=== PATIENT | female | born 1950 | race Hispanic/Latino ===

== ENCOUNTER 2017-08-05 12:57 | Observation (INO) | payer OTHER, MEDICARE ==
--- NOTE | 2017-08-05 14:25 | RAD REPORT ---
EXAM DESCRIPTION: RAD - Chest Pa And Lat (2 Views) - 08/05/2017 2:19 pm CLINICAL HISTORY: Palpitation. COMPARISON: 01/20/2013, 06/02/2009 FINDINGS: The lungs are clear. The heart is upper limit of normal in size. No displaced fractures. A ortic atherosclerosis IMPRESSION: No acute intrathoracic finding seen.
[2017-08-05 14:27] LABS: Absolute Monocytes 0.4 K/uL (0.1-1.3); Absolute Neutrophil 3.8 K/uL (1.8-8.0); Basophils % 0.6 % (0-1.3); Eosinophils % 2.5 % (0-4.4); Hematocrit 41.3 % (36.0-45.0); Lymphocytes % 31.2 % (15.3-44.8); MCH 30.7 pg (27.0-35.0); MCV 91.4 fL (80-100); MPV 7.4 fL (7.6-11.3); Monocytes % 6.1 % (3.3-12.3); RBC Red Blood Cell Count 4.52 M/uL (3.86-4.86)
[2017-08-05 14:36] LABS: Protime INR 1.04
[2017-08-05 14:41] LABS: Bicarbonate 28 mEq/L (21-31); Glucose Level 104 mg/dL (65-120); Lipase 13 U/L (22-51); Potassium 3.5 mEq/L (3.6-5.0); Sodium Level 141 mEq/L (135-145)
[2017-08-05 14:47] LABS: ALT/SGPT 72 IU/L (10-60); AST/SGOT 80 IU/L (10-42); Albumin 4.4 g/dL (3.2-5.5); Alkaline Phosphatase 136 IU/L (42-121); BUN Blood Urea Nitrogen 12 mg/dL (6-20); Bilirubin Direct 0.1 mg/dL (0-0.2); Bilirubin Total 0.9 mg/dL (0.3-1.2); Creatine Phosphokinase 98 IU/L (22-269); Protein, Total 7.8 g/dL (6.0-8.3)
[2017-08-05 14:50] LABS: CKMB Creatine Kinase MB 1.9 ng/ml (0.3-4.0)
--- NOTE | 2017-08-05 15:31 | RAD REPORT ---
EXAM DESCRIPTION: CT - Angio Aorta For Dissection - 08/05/2017 3:11 pm CLINICAL HISTORY: Chest pain radiating to the back. COMPARISON: None. TECHNIQUE: CT angiography of the aorta was performed with volume rendering. All CT scans are performed using dose optimization technique as appropriate and may include automated exposure control or mA/KV adjustment according to patient size. FINDINGS: A left aortic arch is present with normal branching pattern of the great vessels.No acute aortic finding is seen such as aneurysm, penetrating ulcer or dissection. Evidence of chronic occlus ion of the origin of the celiac axis is noted. The SMA is widely patent with significant pancreaticod uodenal collateral vessels noted supplying the celiac axis branch vessels. SONIA is patent. Bilateral s dileep renal arteries are noted without significant stenosis suspected. Aortoiliac atherosclerosis is present without significant stenosis. No evidence of pulmonary embolism. The lungs are clear. The liver demonstrates no focal mass or biliary dilatation.Mild fatty liver is suspected.The spleen, pancreas, adrenal glands and kidneys are within normal limits for arterial phase imaging.Mild mesente jessenia edema is present, nonspecific. A small fat containing umbilical hernia. No bowel obstruction, free fluid or abscess.No pneumatosis coli seen. The appendix is normal. No path ologic enlarged lymphadenopathy identified. No acute fracture seen. IMPRESSION: No acute aortic finding is demonstrated. 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 Prominent pancreaticoduodenal collaterals are present s upplying the celiac axis branches. Mild nonspecific small bowel mesenteric edema is present.
--- NOTE | 2017-08-05 15:51 | ER ---
Nurse's Notes [facility] Name: Veronica Claire Age: 67 yrs Sex: Female : 1950 Arrival Date: 08/05/2017 Time: 13:02 Bed 4 Private MD: Diagnosis: Other chest pain;Shortness of breath;Palpitations Presentation: 08/05 13:07 Presenting complaint: Patient states: Reports epigastric pain and tenderness with aj palpation for 2 days. Also reports rapid heart rate and SOB when walking up stairs. Transition of care: patient was not received from another setting of care. Onset of symptoms was August 03, 2017. Initial Sepsis Screen: Does the patient meet any 2 criteria? No. Patient's initial sepsis screen is negative. Does the patient have a suspected source of infection? No. Patient's initial sepsis screen is negative. Care prior to arrival: None. 13:07 Method Of Arrival: Ambulatory aj 13:07 Acuity: LUBA 3 aj Triage Assessment: 13:08 General: Appears in no apparent distress. comfortable, Behavior is calm, cooperative, aj appropriate for age. Pain: Complains of pain in epigastric area. Neuro: Level of Consciousness is awake, alert, obeys commands, Oriented to person, place, time, situation, Appropriate for age. Cardiovascular: Denies chest pain, Capillary refill < 3 seconds in bilateral fingers Patient's skin is warm and dry. GI: Abdomen is flat. Derm: Skin is intact, is healthy with good turgor, Skin is pink, warm \T\ dry. normal. 13:08 Respiratory: Reports shortness of breath on exertion. aj Historical: - Allergies: 13:08 HYDROCODONE; aj 13:08 Valium; aj - Home Meds: 13:08 amlodipine 5 mg tab 1 tab once daily [Active]; levothyroxine 125 mcg tab 1 tab once aj daily [Active]; Nexium 40 mg Oral cpDR 1 cap once daily [Active]; Plavix 75 mg Oral tab 1 tab once daily [Active]; Zetia 10 mg Oral tab 1 tab once daily [Active]; - PMHx: 13:08 CARROTID ART CLOGGED; GERD; Hypertension; Hypothyroidism; LOW VITAMIN D LEVEL; aj - PSHx: 13:08 Cholecystectomy; ANKLE SURG; aj - Immunization history:: Adult Immunizations up to date. - Social history:: Smoking status: Patient/guardian denies using tobacco. Screenin:20 Abuse screen: Denies threats or abuse. Nutritional screening: No deficits noted. aa5 Tuberculosis screening: No symptoms or risk factors identified. Fall Risk None identified. Assessment: 13:20 General: Appears comfortable, Behavior is calm, cooperative. Pain: Complains of pain in aa5 xyphoid area and epigastric area Pain does not radiate. Pain currently is 8 out of 10 on a pain scale. Quality of pain is described as aching, Pain began 2-3 days ago. Is continuous. Neuro: Level of Consciousness is awake, alert, obeys commands, Oriented to person, place, time, situation. Cardiovascular: Heart tones S1 S2 present Rhythm is regular. Respiratory: Reports shortness of breath on exertion Airway is patent Respiratory effort is even, unlabored, Respiratory pattern is regular, symmetrical, Breath sounds are clear bilaterally. Denies cough. GI: Abdomen is round non-distended, Bowel sounds present X 4 quads. Abd is soft and non tender X 4 quads. Patient currently denies diarrhea, nausea, vomiting. : No signs and/or symptoms were reported regarding the genitourinary system. EENT: No signs and/or symptoms were reported regarding the EENT system. Derm: Skin is pink, warm \T\ dry. Musculoskeletal: Range of motion: intact in all extremities. 14:30 Reassessment: Patient and/or family updated on plan of care and expected duration. Pain aa5 level reassessed. Patient is alert, oriented x 3, equal unlabored respirations, skin warm/dry/pink. 16:10 Reassessment: Patient and/or family updated on plan of care and expected duration. Pain aa5 level reassessed. Patient is alert, oriented x 3, equal unlabored respirations, skin warm/dry/pink. Dr. Galvin at bedside . 17:35 Reassessment: Patient is alert, oriented x 3, equal unlabored respirations, skin aa5 warm/dry/pink. Vital Signs: 13:08 BP 145 / 65; Pulse 79; Resp 20; Temp 99.0; Pulse Ox 97% on R/A; Weight 67.13 kg; Height aj 5 ft. 1 in. (154.94 cm); Pain 8/10; 14:00 BP 128 / 56; Pulse 74; Resp 18 S; Pulse Ox 97% on R/A; aa5 16:00 BP 130 / 62; Pulse 70; Resp 18 S; Pulse Ox 98% on R/A; aa5 17:20 BP 130 / 63; Pulse 73; Resp 16 S; Pulse Ox 98% on R/A; Pain 5/10; aa5 13:08 Body Mass Index 27.96 (67.13 kg, 154.94 cm) ED Course: 13:02 Patient arrived in ED. sb2 13:08 Triage completed. aj 13:08 Arm band placed on left wrist. Patient placed in an exam room. aj 13:13 Lisa Kerr, RAJAN is PHCP. rh1 13:13 Aristeo Witt MD is Attending Physician. rh1 13:20 Patient has correct armband on for positive identification. Placed in gown. Bed in low aa5 position. Call light in reach. Side rails up X2. electronic device monitor on. Pulse ox on. NIBP on. 13:20 No provider procedures requiring assistance completed. Patient maintains SpO2 aa5 saturation greater than 95% on room air. 13:29 Sharlene Palacio, RN is Primary Nurse. aa5 13:37 Radiology exam delayed due to lab results not completed at this time. (BUN/Creatinine). vr 13:50 Missed attempt(s): 20 gauge in right antecubital area. Bleeding controlled, band aid aa5 applied, catheter tip intact. 14:00 Inserted saline lock: 22 gauge in right forearm, using aseptic technique. IV inserted aa5 by Nerissa Alfredo RN. 14:17 Chest Pa And Lat (2 Views) XRAY In Process Unspecified. EDMS 15:08 Urine collected: clean catch specimen, clear. dh3 15:11 CT completed. Patient moved to CT via wheelchair. Patient moved back from CT. vr 15:12 CT Aorta for Dissection In Process Unspecified. EDMS 15:49 Ade Galvin MD is Hospitalizing Provider. rh1 17:35 Patient admitted, IV remains in place. aa5 Administered Medications: 16:17 Drug: Aspirin Chewable Tablet 324 mg Route: PO; aa5 17:20 Follow up: Response: No adverse reaction aa5 16:49 Drug: Pepcid 20 mg Route: IVP; Site: right forearm; aa5 17:20 Follow up: Response: No adverse reaction aa5 Outcome: 15:50 Decision to Hospitalize by Provider. rh1 17:35 Admitted to Tele accompanied by tech, via wheelchair, room 231, with chart, Report aa5 called to MAR Frey 17:35 Condition: stable 17:35 Instructed on the need for admit, Demonstrated understanding of instructions. 17:41 Patient left the ED. aa5 Signatures: Dispatcher [employer] Raissa Murdock RN RN aj Calderon, Audri, RN RN lili5 Zora Terrazas Rachel, NP NURSING HOME ASSISTANT rh1 Mya Calix 3 Judy Srivastava 2
--- NOTE | 2017-08-05 15:51 | EDPHYS ---
Physician Documentation [facility] Name: Veronica Claire Age: 67 yrs Sex: Female : 1950 Arrival Date: 08/05/2017 Time: 13:02 Bed 4 Private MD: ED Physician Aristeo Witt HPI: 08/05 13:13 This 67 yrs old Female presents to ER via Ambulatory with complaints of rh1 Abdominal Pain, Shortness Of Breath. 13:13 The patient presents with abdominal pain in the epigastric area. Onset: The rh1 symptoms/episode began/occurred 5 day(s) ago. The symptoms do not radiate. Associated signs and symptoms: Pertinent positives: chest pain, nausea, palpitations, shortness of breath, Pertinent negatives: fever, vomiting. The symptoms are described as achy, constant, pressure. Modifying factors: The symptoms are alleviated by rest. the symptoms are aggravated by touching the area, exertion. Severity of pain: At its worst the pain was moderate in the emergency department the pain is unchanged. The patient has not experienced similar symptoms in the past. The patient has not recently seen a physician. Pt. reports epigastric abdominal pain that has been constant for the past 5 days, gradually getting worse. Reports + nausea, denies any emesis. Reports sternal chest pain that occurs with exertion, going up her stairs, with palpitations and SOB. Symptoms will last for approx. 1 minute, and then resolve with rest. Denies any syncope, will get lightheaded. Denies any diaphoresis, no paresthesias, weakness.. Historical: - Allergies: 13:08 HYDROCODONE; aj 13:08 Valium; aj - Home Meds: 13:08 amlodipine 5 mg tab 1 tab once daily [Active]; levothyroxine 125 mcg tab 1 tab once aj daily [Active]; Nexium 40 mg Oral cpDR 1 cap once daily [Active]; Plavix 75 mg Oral tab 1 tab once daily [Active]; Zetia 10 mg Oral tab 1 tab once daily [Active]; - PMHx: 13:08 CARROTID ART CLOGGED; GERD; Hypertension; Hypothyroidism; LOW VITAMIN D LEVEL; aj - PSHx: 13:08 Cholecystectomy; ANKLE SURG; aj - Immunization history:: Adult Immunizations up to date. - Social history:: Smoking status: Patient/guardian denies using tobacco. ROS: 13:13 Constitutional: Negative for fever, chills rh1 13:13 Cardiovascular: Positive for chest pain, palpitations, Negative for edema. 13:13 Respiratory: Positive for shortness of breath, Negative for cough, wheezing. 13:13 Abdomen/GI: Positive for abdominal pain, nausea, Negative for vomiting, diarrhea. 13:13 Back: Negative for decreased range of motion, pain at rest, pain with movement, radiated pain. 13:13 MS/extremity: Negative for pain, paresthesias, swelling. 13:13 Skin: Negative for diaphoresis. 13:13 Neuro: Positive for lightheaded, Negative for numbness, syncope, tingling, weakness. 13:13 All other systems are negative. Exam: 13:13 Constitutional: This is a well developed, well nourished patient who is awake, alert, rh1 and in no acute distress. Head/Face: Normocephalic, atraumatic. Neck: Trachea midline, and no cervical lymphadenopathy. Supple, full range of motion without nuchal rigidity. No Meningismus. Chest/axilla: Normal chest wall appearance and motion. Nontender with no deformity. No lesions are appreciated. Cardiovascular: Regular rate and rhythm with a normal S1 and S2. No gallops, murmurs, or rubs. No JVD. No pulse deficits. Respiratory: Lungs have equal breath sounds bilaterally, clear to auscultation. No rales, rhonchi or wheezes noted. No increased work of breathing. 13:13 Back: No spinal tenderness. No costovertebral tenderness. Full range of motion. 13:13 Skin: Warm, dry with normal turgor. Normal color with no rashes, no lesions, and no evidence of cellulitis. MS/ Extremity: Pulses equal, no cyanosis. Neurovascular intact. Full, normal range of motion. 13:13 Cardiovascular: Pulses: no pulse deficits are appreciated, Pulses are 2+ in right radial artery, right posterior tibial artery, right dorsalis pedis artery, left radial artery, left posterior tibial artery and left dorsalis pedis artery. Edema: is not appreciated, JVD: is not appreciated. 13:13 Abdomen/GI: Inspection: abdomen appears normal, bruising, is not seen, distension, is not seen, Bowel sounds: normal, in all quadrants, active, all quadrants, Palpation: soft, in all quadrants, moderate abdominal tenderness, in the epigastric area, rebound tenderness, is not appreciated, involuntary guarding, is not appreciated, Indicators: McBurney's point is not tender, Morton's sign is negative, Rovsing's sign is negative, Liver: no appreciated palpable abnormalities. 13:13 Back: Exam negative for ecchymosis 13:13 Neuro: Orientation: is normal, to person, place \T\ time. Mentation: is normal, lucid, able to follow commands, Motor: is normal, moves all fours, strength is 5/5 in all extremities, Sensation: is normal, no obvious gross deficits, numbness, is not appreciated, tingling, is not appreciated, Gait: is steady, at a normal pace, without difficulty. Vital Signs: 13:08 BP 145 / 65; Pulse 79; Resp 20; Temp 99.0; Pulse Ox 97% on R/A; Weight 67.13 kg; Height aj 5 ft. 1 in. (154.94 cm); Pain 8/10; 14:00 BP 128 / 56; Pulse 74; Resp 18 S; Pulse Ox 97% on R/A; aa5 16:00 BP 130 / 62; Pulse 70; Resp 18 S; Pulse Ox 98% on R/A; aa5 17:20 BP 130 / 63; Pulse 73; Resp 16 S; Pulse Ox 98% on R/A; Pain 5/10; aa5 13:08 Body Mass Index 27.96 (67.13 kg, 154.94 cm) aj MDM: 13:13 Patient medically screened. rh1 15:38 Data reviewed: vital signs, nurses notes, lab test result(s), EKG, radiologic studies, rh1 CT scan, plain films, and as a result, I will admit patient. Data interpreted: Pulse oximetry: on room air is 97 %. Interpretation: normal. Counseling: I had a detailed discussion with the patient and/or guardian regarding: the historical points, exam findings, and any diagnostic results supporting the discharge/admit diagnosis, lab results, radiology results, the need for further work-up and treatment in the hospital. Physician consultation: Ade Galvin MD was called at 15:38, was contacted at 15:49, regarding admission. 08/05 13:24 Order name: Basic Metabolic Panel; Complete Time: 14:55 rh1 08/05 13:24 Order name: BNP; Complete Time: 14:56 08/05 13:24 Order name: CBC with Diff; Complete Time: 14:32 08/05 13:24 Order name: Ckmb; Complete Time: 14:55 08/05 13:24 Order name: CPK; Complete Time: 14:55 08/05 13:24 Order name: LFT's; Complete Time: 14:55 08/05 13:24 Order name: Magnesium; Complete Time: 14:55 08/05 13:24 Order name: PT-INR; Complete Time: 14:41 08/05 13:24 Order name: Ptt, Activated; Complete Time: 14:41 08/05 13:24 Order name: Troponin (emerg Dept Use Only); Complete Time: 14:55 08/05 13:24 Order name: Chest Pa And Lat (2 Views) XRAY; Complete Time: 14:28 08/05 13:25 Order name: Lipase; Complete Time: 14:55 08/05 13:25 Order name: CT Aorta for Dissection; Complete Time: 15:35 08/05 15:11 Order name: Urine Dipstick--Ancillary (enter results); Complete Time: 16:33 08/05 13:24 Order name: EKG; Complete Time: 13:25 08/05 13:24 Order name: Cardiac monitoring; Complete Time: 14:19 08/05 13:24 Order name: EKG - Nurse/Tech; Complete Time: 14:19 08/05 13:24 Order name: IV Saline Lock; Complete Time: 14:19 08/05 13:24 Order name: Labs collected and sent; Complete Time: 14:19 08/05 13:24 Order name: O2 Per Protocol; Complete Time: 14:19 08/05 13:24 Order name: O2 Sat Monitoring; Complete Time: 14:19 08/05 13:24 Order name: Urine Dipstick-Ancillary (obtain specimen); Complete Time: 15:08 rh1 Administered Medications: 16:17 Drug: Aspirin Chewable Tablet 324 mg Route: PO; aa5 17:20 Follow up: Response: No adverse reaction aa5 16:49 Drug: Pepcid 20 mg Route: IVP; Site: right forearm; aa5 17:20 Follow up: Response: No adverse reaction aa5 Disposition: 18:15 Co-signature as Attending Physician, Aristeo Witt MD. rn Disposition: 08/05/17 15:50 Hospitalization ordered by Ade Galvin for Observation. Preliminary diagnosis are Other chest pain, Shortness of breath, Palpitations. - Bed requested for Telemetry/MedSurg (observation). - Status is Observation. aa5 - Condition is Stable. - Problem is new. - Symptoms have improved. UTI on Admission? No Signatures: Dispatcher [employer] EDMS Raissa William RN RN aj Nieto, Roman, MD MD rn Calderon, Audri, RN RN aa5 Lisa Kerr NP [employer] [facility] Natali Heard Corrections: (The following items were deleted from the chart) 15:49 15:38 Physician consultation: Ade Galvin MD was called at 15:38, [place] [id number] 15:59 15:50 Hospitalization Ordered by Ade Galvin MD for Observation. Preliminary diagnosis eb is Other chest pain; Shortness of breath; Palpitations. Bed requested for Telemetry/MedSurg (observation). Status is Observation. Condition is Stable. Problem is new. Symptoms have improved. UTI on Admission? No. rh1 16:03 15:59 08/05/2017 15:50 Hospitalization Ordered by Ade Galvin MD for Observation. eb Preliminary diagnosis is Other chest pain; Shortness of breath; Palpitations. Bed requested for Telemetry/MedSurg (observation). Status is Observation. Condition is Stable. Problem is new. Symptoms have improved. UTI on Admission? No. eb 16:07 16:03 08/05/2017 15:50 Hospitalization Ordered by Ade Galvin MD for Observation. eb Preliminary diagnosis is Other chest pain; Shortness of breath; Palpitations. Bed requested for Telemetry/MedSurg (observation). Status is Observation. Condition is Stable. Problem is new. Symptoms have improved. UTI on Admission? No. eb 17:41 16:07 08/05/2017 15:50 Hospitalization Ordered by Ade Galvin MD for Observation. aa5 Preliminary diagnosis is Other chest pain; Shortness of breath; Palpitations. Bed requested for Telemetry/MedSurg (observation). Status is Observation. Condition is Stable. Problem is new. Symptoms have improved. UTI on Admission? No. eb
[2017-08-05] MEDS ORDERED: ASPIRIN 81 MG CHEWABLE TABLET ONE (16:15)
[2017-08-05 16:23] LABS: Urine Blood TRACE (NEG); Urine Glucose NEGATIVE (NEG); Urine Protein NEGATIVE (NEG)
[2017-08-05] MEDS ORDERED: FAMOTIDINE 20 MG/2 ML VIAL IV ONE (16:40)
[2017-08-05] MEDS: D5 0.45 NS 1,000 ML IV SCH (17:43)
[2017-08-05] MEDS ORDERED: ACETAMINOPHEN 650MG/RECT SUPP PR PRN (17:43)
[2017-08-05] MEDS ORDERED: ONDANSETRON 4 MG/2 ML VIAL IV PRN (17:43)
[2017-08-05] MEDS ORDERED: SODIUM CHLORIDE 0.9% 10ML INJ IV PRN (17:43)
--- NOTE | 2017-08-05 19:16 | HP ---
Date of Admission: 08/05/2017 Primary Care Physician: Dr. Ansari. Chief Complaint: Chest pain and abdominal pain. Code Status: Full. History Of Present Illness: The patient is a 67-year-old female with past medical history of hypertension, hypothyroidism, right-sided carotid artery disease, prediabetes, hyperlipidemia, GERD, who was in her usual state of health until approximately 1 week prior to admission when the patient had sudden onset of shortness of breath after going up a flight of stairs. The patient states usually she is able to climb the flight of stairs to her condominium without any difficulty. She also felt some palpitations along with some chest pressure and tightness around her lower sternum area. The patient denies any fevers, chills, cough, sputum production. The patient did have some nausea, however, no vomiting. No dysuria, hematuria. The patient does state that she has a history of peptic ulcer disease and has been taking proton-pump inhibitors. The patient's symptoms are constant, moderate, progressively worsening. Therefore, patient came into the ER for further evaluation. Upon arrival, her vital signs were stable. She was afebrile. Her workup revealed normal WBC count, did have some mild electrolyte abnormality and her liver function enzymes were elevated. The patient does have a history of fatty liver disease. Imaging studies including CT dissection showed no acute aortic finding. 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 Prominent pancreatic or duodenal collaterals are present supplying the celiac access branches. Mild nonspecific small bowel mesenteric edema. Fatty liver. Her chest x-ray was clear. The patient was referred for admission, and when the patient was seen in the ER. She was awake, alert, oriented x3, in some mild distress. Past Medical History: Fatty liver disease, peptic ulcer disease. GERD, hyperlipidemia, prediabetes, right-sided carotid artery disease, hypothyroidism , hypertension. Past Surgical History: The patient has had her gallbladder removed and ankle surgery along with neuroma. Allergies: VALIUM AND HYDROCODONE, WHICH CAUSED HER BLOOD PRESSURE TO DECREASE. Medications: Reviewed. Social History: The patient denies any alcohol use, tobacco use, or illicit drug use. The patient is independent in her activities of daily living, very active. Family History: Positive for cancer, diabetes, hypertension. Review of Systems: An 11-point system reviewed, negative except as per HPI. Physical Examination: Vital Signs: Blood pressure 145/65, respirations 20, pulse 79, temperature 99, pulse ox 97% on room air. General: Awake, alert, oriented x3. Mild distress due to abdominal pain, elderly female, somewhat ill appearing. HEENT: Normocephalic, atraumatic. CARLOS, EOMI. Moist mucous membranes. Oropharynx is clear. Normal dentition. Conjunctivae anicteric. Neck: Supple. No JVD. Trachea midline CV: S1, S2. No murmurs. Regular rate and rhythm. Peripheral pulses palpable. Respiratory: Clear to auscultation bilaterally. No wheezing. No stridor. No use of accessory muscles. Gastrointestinal: Abdomen soft. Mild tenderness to palpation in the upper epigastric region. No rebound, guarding, or rigidity. No palpable masses. Positive bowel sounds. Extremities: No clubbing, cyanosis, or edema. No calf tenderness. Neuro: Cranial nerves 2-12 intact grossly, 5/5 strength bilateral lower extremities. Sensation intact to light touch. Speech is normal. Skin: No rashes. Normal skin turgor. Psych: Mood is okay. Affect is full. Insight and judgment are good. Laboratory Data: Sodium 141, potassium 3.5, chloride 108, CO2 28, BUN 12, creatinine 0.54, glucose 104, calcium 9.5, magnesium 2. Total bilirubin 0.9, AST 80, ALT 72, alkaline phosphatase 136, CK 98, troponin less than 0.03. BNP 80. Lipase 13. INR 1.04. WBC 6.3, H and H 13.9, 41.3, platelets 352. UA; trace blood, negative nitrite, negative leukocyte. Chest x-ray shows no acute intrathoracic process. CT scan dissection shows no acute aortic finding. 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 Prominent pancreaticoduodenal collaterals present, supplying the celiac access branches. Mild specific non small-bowel mesenteric edema present. Fatty liver changes. Assessment And Plan: A 67-year-old female with: 1. Shortness of breath. Chest x-ray is clear. Not requiring supplemental oxygen. No fever, cough. No signs of pneumonia. 2. Chest tightness. Doubt, this is related to cardiac disease. Troponin set is negative. EKG did not show any acute changes. We will obtain 2 more sets of cardiac enzymes to rule out acute coronary syndrome. Consider Cardiology consultation. 3. Abdominal pain. The patient is a vasculopath, has multiple stenosis in multiple arteries in multiple systems. CT dissection shows mesenteric chronic stenosis, but has collaterals, likely has some underlying ischemic bowel disease. May benefit from angiogram and stenting. If condition deteriorates, consider surgical consultation. 4. Essential hypertension, stable. 5. Hypothyroidism. 6. Carotid artery disease on the right. 7. Prediabetes. 8. Hyperlipidemia. 9. Gastroesophageal reflux disease without esophagitis. 10. History of peptic ulcer disease. We will continue PPI. 11. Fatty liver disease. LFTs are elevated. The patient follows up with the credit risk officer on a regular basis. Plan: Admit the patient to Med-Surg, place as observation. No MPOA or living will /SIA Voice ID: [id number] ISSA
[2017-08-05] MEDS: PANTOPRAZOLE 40 MG INJ IVP SCH (20:26)
[2017-08-06] MEDS: D5 0.45 NS 1,000 ML IV SCH ×2 (04:00→14:05)
[2017-08-06 05:29] LABS: Absolute Lymphocytes (CBC) 2.2 K/uL (0.7-4.9); Absolute Monocytes 0.5 K/uL (0.1-1.3); Absolute Neutrophil 3.4 K/uL (1.8-8.0); Basophils % 0.6 % (0-1.3); Eosinophils % 3.3 % (0-4.4); Hematocrit 37.9 % (36.0-45.0); MCH 30.8 pg (27.0-35.0); MCV 91.6 fL (80-100); MPV 7.5 fL (7.6-11.3); RBC Red Blood Cell Count 4.14 M/uL (3.86-4.86)
[2017-08-06 05:54] LABS: ALT/SGPT 58 IU/L (10-60); AST/SGOT 66 IU/L (10-42); Albumin 3.6 g/dL (3.2-5.5); Alkaline Phosphatase 110 IU/L (42-121); BUN Blood Urea Nitrogen 9 mg/dL (6-20); Bicarbonate 26 mEq/L (21-31); Glucose Level 129 mg/dL (65-120); Potassium 3.5 mEq/L (3.6-5.0); Protein, Total 6.4 g/dL (6.0-8.3); Sodium Level 140 mEq/L (135-145)
--- NOTE | 2017-08-06 06:55 | EKG ---
Test Date: 2017-08-05 Test Time: 13:45:05 Physician Assistant Primary Care: ERIKA MEASUREMENT RESULTS: Intervals: Rate: 71 TX: 162 QRSD: 96 QT: 396 QTc: 430 [place]: P: 21 TX: 162 QRS: 57 T: 19 INTERPRETIVE STATEMENTS: Normal sinus rhythm Incomplete right bundle branch block Borderline ECG Compared to ECG 01/20/2013 20:17:42 Incomplete right bundle-branch block now present Electronically Signed On 08-06-17 06:53:49 CDT by Nagi Wang
[2017-08-06] MEDS ORDERED: REGADENOSON 0.4 MG/5 ML SYR IV ONE (08:21)
[2017-08-06] MEDS: PANTOPRAZOLE 40 MG INJ IVP SCH (10:29)
[2017-08-06] MEDS: KCL 20 MEQ/100 mL IVPB 20 MEQ/100 ML BAG IV SCH ×2 (10:29→10:39)
--- NOTE | 2017-08-06 11:35 | RAD REPORT ---
EXAM DESCRIPTION: NM - Rest Stress Cardiac Imaging - 08/06/2017 11:21 am CLINICAL HISTORY: Chest pain COMPARISON: None. TECHNIQUE: The patient was administered 10 mCi of Tc 99m Sestamibi prior to resting SPECT imaging of the heart. The patient was then administered 30.9 mCi of Tc 99m Sestamibi following exercise or phar macologic stress. Multiplanar SPECT images were reviewed. FINDINGS: The end diastolic volume is 68 ml, the end systolic volume is 27 ml, and the ejection frac tion is 61 %. No stress-induced ischemic changes are identifiable. There is slight decrease in activity along the a nterior wall apex not clearly different between rest and stress imaging. This is not seen as a signif icant finding. No large or measurable area of scarring identifiable. IMPRESSION: No stress-induced ischemia seen. No measurable or significant fixed defects seen. Normal ventricular volumes and ejection fraction.
--- NOTE | 2017-08-06 16:03 | TREADPHA ---
DX: CHEST PAIN Date of Study: 08/06/17 Ht: 5 1 Wt: 148 lb 0 oz Consulting Physician: TAWANNA MEDICATIONS: TYLENOL, ZOFRAN, DEXTROSE, PROTONIX, POTASSIUM CHLORIDE. HISTORY: 67 YEAR OLD FEMALE WITH CHEST PAIN. CAROTID ARTERY STENOSIS. MEDICAL HISTORY OF GASTROINTESTINAL REFLUX DISEASE, HYPERTENSION, DIABETES MELLITUS (BORDERLINE). HYPTHYROIDISM. PHYSICIAL EXAMINATION: RESTING B.P.: 118/46 RESTING H.R.: 63 RESTING EKG: RIGHT BUNDLE BRANCH BLOCK OTHERWISE NORMAL. PROTOCOL: LEXISCAN EXERCISE TIME: 3:30 B.P. AT PEAK STRESS: 130/58 IMPRESSION: LEXISCAN INJECTED, CARDIOLITE INJECTED PER PRTOCOL. SEE NUCLEAR MEDICINE REPORT. NO SUPRA VENTRICULAR TACHYCARDIA. NO VENTRICULAR TACHYCARDIA. FREQUENT PREMATURE VENTRICULAR COMPLEXES DURING AND POST ADMINISTRATION OF LEXISCAN. CHEST PAIN 10/10 AFTER ADMINISTRATION GRADUALLY DECREASED TO 3/10 IN RECOVERY. NON DIAGNOSTIC EKG WITH LEXISCAN STRESS.
--- NOTE | 2017-08-06 16:31 | ECHO ---
HEIGHT: 5 ft 1 in WEIGHT: 148 lb 0 oz DATE OF STUDY: 08/06/[address]: Nagi Wang MD 2-DIMENSIONAL: YES M.MODE: YES DOPPLER: YES COLOR FLOW: YES TDS: PORTABLE: DEFINITY: BUBBLE STUDY: DIAGNOSIS: CHEST PAIN CARDIAC HISTORY: CATHERIZATION: NO SURGERY: NO PROSTHETIC VALVE: NO PACEMAKER: NO MEASUREMENTS (cm) DIASTOLIC (NORMALS) SYSTOLIC (NORMALS) IVSd 0.7 (0.6-1.2) LA Diam 3.3 (1.9-4.0) LVEF 61% LVIDd 4.9 (3.5-5.7) LVIDs 3.3 (2.0-3.5) %FS 33% LVPWd 0.9 (0.6-1.2) Ao Diam 2.4 (2.0-3.7) 2 DIMENSIONAL ASSESSMENT: RIGHT ATRIUM: NORMAL LEFT ATRIUM: NORMAL RIGHT VENTRICLE: NORMAL LEFT VENTRICLE: NORMAL TRICUSPID VALVE: NORMAL MITRAL VALVE: NORMAL PULMONIC VALVE: NORMAL AORTIC VALVE: NORMAL PERICARDIAL EFFUSION: NONE AORTIC ROOT: NORMAL LEFT VENTRICULAR WALL MOTION: NORMAL DOPPLER/COLOR FLOW: NORMAL COMMENTS: NORMAL 2-DIMENSIONAL ECHOCARDIOGRAM WITH DOPPLER. TECHNOLOGIST: CINTHYA PORTILLO
--- NOTE | 2017-08-06 19:10 | P.SSS ---
Patient History Date of Service: 08/06/17 Primary Care Provider: None Reason for admission: Chest Pain History of Present Illness: The patient is a 67-year-old female with past medical history of hypertension, hypothyroidism, right-sided carotid artery disease, prediabetes, hyperlipidemia , GERD, who was in her usual state of health until approximately 1 week prior to admission when the patient had sudden onset of shortness of breath after going up a flight of stairs. The patient states usually she is able to climb the flight of stairs to her condominium without any difficulty. She also felt some palpitations along with some chest pressure and tightness around her lower sternum area. The patient denies any fevers, chills, cough, sputum production. The patient did have some nausea, however, no vomiting. No dysuria, hematuria. The patient does state that she has a history of peptic ulcer disease and has been taking proton-pump inhibitors. The patient's symptoms are constant, moderate, progressively worsening. Therefore, patient came into the ER for further evaluation. Upon arrival, her vital signs were stable. She was afebrile. Her workup revealed normal WBC count, did have some mild electrolyte abnormality and her liver function enzymes were elevated. The patient does have a history of fatty liver disease. Imaging studies including CT dissection showed no acute aortic finding. 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 Prominent pancreatic or duodenal collaterals are present supplying the celiac access branches. Mild nonspecific small bowel mesenteric edema. Fatty liver. Her chest x-ray was clear. The patient was referred for admission, and when the patient was seen in the ER. She was awake, alert, oriented x3, in some mild distress. Allergies diazepam [From Valium] Allergy (Intermediate, Verified 08/05/17 18:30) Shortness of breath Hydrocodone-Acetaminophen Adverse Reaction (Intermediate, Uncoded 08/05/17 18:30 ) Shortness of breath Home Medications: Amlodipine [Norvasc*] 2.5 mg PO DAILY 08/05/17 Clopidogrel Bisulfate [Plavix] 75 mg PO DAILY 08/05/17 Esomeprazole Mag Trihydrate [Nexium] 40 mg PO DAILY 08/05/17 Ezetimibe [Zetia*] 10 mg PO DAILY 08/05/17 Levothyroxine Sodium 125 mcg PO DAILY 08/05/17 - Past Medical/Surgical History Has patient received pneumonia vaccine in the past: No Diabetic: No -: hypertension -: gerd -: hypothyroidism -: carotid artery right blockage -: cholecystectomy -: ankle sx ligament repair -: neuroma left foot - Family History Father -: Cancer Notes: pancreatic ca - Social History Smoking Status: Former smoker Alcohol use: No CD- Drugs: No Caffeine use: No Place of Residence: Home Review of Systems General: As per HPI Physical Examination - Vital Signs Temperature: 97.4 F Blood Pressure: 125/59 Pulse: 62 Respirations: 16 Pulse Ox (%): 95 - Physical Exam General: Alert, In no apparent distress HEENT: Atraumatic, PERRLA, Mucous membr. moist/pink, EOMI, Sclerae nonicteric Neck: Supple, 2+ carotid pulse no bruit, No LAD, Without JVD or thyroid abnormality Respiratory: Clear to auscultation bilaterally, Normal air movement Cardiovascular: Regular rate/rhythm, Normal S1 S2 Gastrointestinal: Normal bowel sounds, No tenderness Musculoskeletal: No tenderness Integumentary: No rashes Neurological: Normal gait, Normal speech, Normal strength at 5/5 x4 extr, Normal tone, Normal affect Lymphatics: No axilla or inguinal lymphadenopathy - Diagnosis (Problem(s)) (1) ACS (acute coronary syndrome) Status: Ruled-out (2) CAD (coronary artery disease) Onset Date: 08/06/17 Status: Chronic Qualifiers: Coronary Disease-Associated Artery/Lesion type: [place] artery [place] vs. transplanted heart: [place] heart Associated angina: without angina Qualified Code(s): I25.10 - Atherosclerotic heart disease of [place] coronary artery without angina pectoris (3) GERD (gastroesophageal reflux disease) Onset Date: 08/06/17 Status: Chronic Qualifiers: Esophagitis presence: without esophagitis Qualified Code(s): K21.9 - Gastro -esophageal reflux disease without esophagitis (4) Hyperlipidemia Onset Date: 08/06/17 Status: Chronic Qualifiers: Hyperlipidemia type: mixed hyperlipidemia Qualified Code(s): E78.2 - Mixed hyperlipidemia (5) Hypertension, essential Onset Date: 08/06/17 Status: Chronic (6) Hypothyroidism Onset Date: 08/06/17 Status: Chronic Qualifiers: Hypothyroidism type: acquired Qualified Code(s): E03.9 - Hypothyroidism, unspecified Treatment Summary: Overall during the hospital stay patient remained stable Patient was initially admitted to the hospital for chest pain and shortness of breath. Was found to have troponins x3 negative. EKG was within normal limits. Patient was referred for stress test here in the hospital which was also within normal limits. Most likely patient's chest pain and shortness of breath was related to anxiety and patient was asked to engage in stress relieving exercises along with following up with the primary care provider to manage her stress better. Patient also has a history of GERD which might be causing some of her chest pain and thus was given a prescription for Protonix as well. Patient will be following up with primary care provider and cardiology for further care. Patient was discharged home under stable condition after ACS was ruled out. - Disposition Disposition: ROUTINE DISCHARGE Condition: GOOD Diet: Regular Activity: Ad ron
--- NOTE | 2017-08-08 11:22 | CON ---
Date of Consultation: 08/06/[address] Lora's service on August 25, 2017. I saw the patient on August 06, 2017. Reason For Consultation: Chest pain. History Of Present Illness: Ms. Claire is a 67-year-old [place] woman who has a history of hypertension, hypothyroidism, gastroesophageal reflux disease. She has cerebrovascular disease with the known 60% right internal carotid artery in 2011. She keeps a check on that by Malaika Ansari. She came in with chest pain, shortness of breath, mid epigastric pain, nause a, palpitations, shortness of breath that has been going on basically constantly for 5 days. Denied PND, orthopnea, pedal edema, or syncope. By the time I saw her, our workup was negative except for m ild elevation of her liver function tests. She is status post cholecystectomy and chest x-ray was ne gative. A CTA was negative. Her EKG was negative. Allergies: SHE IS ALLERGIC TO VALIUM AND HYDROCODONE. Review of Systems: Negative. Social History: Negative. Family History: Noncontributory. Medications: At home include Norvasc, Thyroid, Plavix, Nexium, and Zetia. Physical Examination: Vital Signs: Stable and afebrile. HEENT: Negative. Neck: Supple with no bruit. Chest: Clear. Cardiac: Revealed a regular rhythm and rate. No murmurs, gallops, or rubs. Abdomen: Slightly tender in the midepigastric region. No rebound. Extremities: Revealed no clubbing, cyanosis, or edema. Impression And Plan: 1.Atypical chest pain. I think this is most likely gastrointestinal in origin. She has elevated li olga function tests, AST, ALT, and alkaline phosphatase. She does not have a gallbladder, but certain ly an ultrasound in that region may be useful. 2.Carotid stenosis that need to be followed up as an outpatient. She has risk factors including hyp ertension and CVD and I do recommend that she has an echocardiogram and a Lexiscan before she leaves. KEN/SIA Voice ID: [id number] Report ID: [id number]
== END 2017-08-06 17:19 | disposition home or self-care (01) ==
LOC: ER 12:57 → ERHOLD 15:52 → 2ND 17:33
PROVIDERS: ADMIT Family Medicine; ATTEND Family Medicine
DX: R07.9 Chest pain, unspecified (principal); R06.02 Shortness of breath; I10 Essential (primary) hypertension; E03.9 Hypothyroidism, unspecified; E78.5 Hyperlipidemia, unspecified; K21.9 Gastro-esophageal reflux disease without esophagitis; I25.10 Atherosclerotic heart disease of native coronary artery without angina pectoris; R73.03 Prediabetes; I77.89 Other specified disorders of arteries and arterioles
CPT/HCPCS: 36415; 71046; 71275; 74175; 78452; 80048; 80053; 80076; 81003; 82550; 82553; 83690; 83735; 83880; 84484 ×2; 85025 ×2; 85610; 85730; 93005; 93017; 93306; 94760 ×3; 96374; 97163; 99285; A9500; C9113 ×2; G0378 ×2; J2785; Q9967

== ENCOUNTER 2017-08-29 07:05 | Day surgery (SDC) | payer OTHER, MEDICARE ==
[2017-08-28 09:20] LABS: Absolute Lymphocytes (CBC) 1.7 K/uL (0.7-4.9); Absolute Monocytes 0.4 K/uL (0.1-1.3); Absolute Neutrophil 4.1 K/uL (1.8-8.0); Basophils % 0.6 % (0-1.3); Eosinophils % 3.2 % (0-4.4); Hematocrit 41.8 % (36.0-45.0); Lymphocytes % 26.6 % (15.3-44.8); MCH 30.7 pg (27.0-35.0); MPV 7.4 fL (7.6-11.3); Monocytes % 6.2 % (3.3-12.3); RBC Red Blood Cell Count 4.54 M/uL (3.86-4.86)
[2017-08-28 09:23] LABS: Protime INR 0.98
[2017-08-28 09:41] LABS: BUN Blood Urea Nitrogen 9 mg/dL (6-20); Bicarbonate 29 mEq/L (21-31); Glucose Level 111 mg/dL (65-120); Potassium 4.5 mEq/L (3.6-5.0); Sodium Level 140 mEq/L (135-145)
--- NOTE | 2017-08-28 10:27 | RAD REPORT ---
EXAM DESCRIPTION: RAD - Chest Pa And Lat (2 Views) - 08/28/2017 9:15 am CLINICAL HISTORY: Preop chest, pending cardiac catheterization COMPARISON: August 05, 2017, June 02, 2009 TECHNIQUE: PA and lateral views of the chest were obtained. FINDINGS: The lungs are clear of a peripheral mass, consolidation or failure finding. Interstitial m arkings are prominent but unchanged. Mediastinal and hilar regions show no new new finding. Mass or l ymphadenopathy are not suspected. Trachea is midline. Heart size is normal and central vasculature is within normal limits. No pleural effusion or pneumo thorax seen. No acute bony finding noted. No aortic abnormality. IMPRESSION: No acute cardiopulmonary process. Above detailed chest findings are without significant change from comparison.
[~2017-08-29 07:05] MED LIST: LIDOCAINE 1% 20 ML MDV ONE
[2017-08-29] MEDS ORDERED: NA CHLORIDE 0.9% 500 ML ONE (07:51)
[2017-08-29] MEDS ORDERED: HEPA 1000U/500MLS 2,000 UNIT/1,000 ML BAG IV ONE (08:11)
[2017-08-29] MEDS ORDERED: LIDOCAINE 1% 20 ML MDV ONE (08:11)
[2017-08-29] MEDS ORDERED: MIDAZOLAM HCL 2 MG/2 ML INJ ONE (08:43)
[2017-08-29] MEDS ORDERED: NICARDIPINE HCL 25 MG/10 ML IV ONE (08:43)
[2017-08-29] MEDS ORDERED: HEPARIN 5000 UNIT/ML 1 ML VIAL ONE (08:43)
[2017-08-29] MEDS ORDERED: FENTANYL CITR 100 MCG/2 ML ONE (08:44)
[2017-08-29] MEDS ORDERED: NA CHLORIDE 0.9% 0 ML ONE (08:51)
[2017-08-29] MEDS ORDERED: ATROPINE SULF 1 MG/10 ML SYR IV ONE (08:51)
--- NOTE | 2017-08-29 12:16 | OP ---
Surgeon: Dany Gray MD Procedures: Left heart catheterization, coronary left ventricular angiography. Procedure Findings: The patient has mild coronary plaque in the right coronary circumflex. LAD is f ree of any plaque. There is no significant disease. There is short left main. Left ventricular eje ction fraction normal. All of the pressures were normal. Left ventricular end-diastolic pressure 2. Procedure In Detail: The patient was brought to the cardiac phlebotomy lab assistant in a fasting state, sedated wit h Versed and fentanyl. Right radial approach was used, prepared, and draped in usual sterile fashion . 1% lidocaine was used to anesthetize the skin over the right radial artery, which was entered usin g a 21-gauge needle. A 0.021 inch diameter guidewire was used to cannulate the artery and then we us ed the modified Seldinger technique to place a 6-Romansh Terumo sheath. The sheath was flushed. A ra dial cocktail was given consisting of nicardipine, heparin, and nitroglycerin. We used a Terumo Glid ewire, a Terumo TIG catheter, and fluoroscopy to guide the catheter into the ascending aorta. We use d a TIG catheter to angiogram left coronary, right coronary, and left ventricle. At the end of the p rocedure, the catheter was withdrawn over a wire. The sheath was removed and the arteriotomy was gopal sed using a TR band. No complications from the procedure. Estimated Blood Loss: 5 cc. Clinical Rn Manager: Cheryl Pena. Complications: None. SHIRAZ/SIA Voice ID: [id number] Report ID: [id number]
== END 2017-08-29 11:35 | disposition home or self-care (01) ==
LOC: CCL 07:05
PROVIDERS: ATTEND Internal Medicine
DX: R07.89 Other chest pain (principal); I25.10 Atherosclerotic heart disease of native coronary artery without angina pectoris; I10 Essential (primary) hypertension; I65.21 Occlusion and stenosis of right carotid artery; E78.5 Hyperlipidemia, unspecified; Z88.8 Allergy status to other drugs, medicaments and biological substances; Z88.6 Allergy status to analgesic agent
CPT/HCPCS: 36415; 71046; 80048; 85025; 85610; 85730; 93458; C1893; J1644; J2250; J3010; J0583

== ENCOUNTER 2019-05-14 17:51 | Observation (INO) | payer OTHER, MEDICARE ==
--- NOTE | 2019-05-14 18:11 | RAD REPORT ---
EXAM DESCRIPTION: CT - Ct Stroke Brain Wo Cont - 05/14/2019 6:03 pm CLINICAL HISTORY: NUMBNESS CVA symptomology COMPARISON: HEAD BRAIN W O CONTRAST dated 01/20/2013 TECHNIQUE: All CT scans are performed using dose optimization technique as appropriate and may inclu de automated exposure control or mA/KV adjustment according to patient size. FINDINGS: No intracranial hemorrhage, hydrocephalus or extra-axial fluid collection.No areas of brai n edema or evidence of midline shift. The paranasal sinuses and mastoids are clear. The calvarium is intact. IMPRESSION: No acute intracranial abnormality. If there is continued clinical concern for CVA, MR i maging of the brain would be recommended. The findings were discussed with Dr. Zapata in the ER On 05/14/2019 at 6 p.m. by telephone.
[2019-05-14 18:17] LABS: Absolute Lymphocytes (CBC) 2.9 K/uL (0.7-4.9); Basophils % 0.6 % (0-1.3); Hematocrit 41.2 % (36.0-45.0); Lymphocytes % 33.3 % (15.3-44.8); MPV 7.4 fL (7.6-11.3); RBC Red Blood Cell Count 4.53 M/uL (3.86-4.86)
[2019-05-14 18:19] LABS: Protime INR 0.96
--- NOTE | 2019-05-14 18:21 | RAD REPORT ---
EXAM DESCRIPTION: RAD - Chest Single View - 05/14/2019 6:17 pm CLINICAL HISTORY: PAIN Chest pain. COMPARISON: Chest Pa And Lat (2 Views) dated 08/28/2017; Chest Pa And Lat (2 Views) dated 08/05/2017; C HEST SINGLE VIEW dated 01/20/2013; CHEST PA AND LAT 2 VIEW dated 06/02/2009 FINDINGS: Portable technique limits examination quality. The lungs are grossly clear. The heart is upper limit of normal in size. No displaced fractures. IMPRESSION: No acute intrathoracic process suspected.
--- NOTE | 2019-05-14 19:11 | RAD REPORT ---
EXAM DESCRIPTION: MRI - C Spine Wo Cont- 05/14/2019 7:00 pm CLINICAL HISTORY: right side numbness Neck pain, radiculopathy COMPARISON: <Comparisons> FINDINGS: Cervical vertebral bodies are normal in height and alignment. No suspicious marrow edema or marrow replacing process. No fracture or traumatic subluxation. The craniocervical junction is normal. C2-3 level: No significant findings. C3-4 level: Small posterior osteophyte/ disc complex is present slightly attenuating the anterior sub arachnoid space. Uncovertebral spurring is present on the right with facet hypertrophy mildly narrowi ng the right exit foramen. C4-5 level: Minimal posterior disc bulge without canal or foraminal stenosis. C5-6 level: Moderate posterior disc/ osteophyte complex is present attenuating the anterior subarachn oid space and mildly narrowing the central canal. Left-sided uncovertebral facet spurring narrows the left exit foramen moderately. C6-7 level: Moderate posterior osteophyte/ disc complex is present attenuating the anterior subarachn oid space and narrowing the central canal mildly. Uncovertebral spurring and facet spurring bilateral ly, greater on the left results in left exit foraminal narrowing. C7-T1 level: No significant findings. Slight linear cord edema is suspected at the C5-C6 level. IMPRESSION: Moderate spondylosis of the lower cervical spine is seen particularly notable at C5-6 an d C6-7 as detailed.
--- NOTE | 2019-05-14 19:13 | RAD REPORT ---
EXAM DESCRIPTION: MRI - Brain Wo Cont - 05/14/2019 7:05 pm CLINICAL HISTORY: right side numbness Headache, drowsiness, CVA COMPARISON: No comparisonsCt Stroke Brain Wo Cont dated 05/14/2019; C Spine Wo Cont dated 05/14/2019 TECHNIQUE: Multi-sequence, multiplanar MR imaging of the brain was performed without contrast. FINDINGS: No intracranial hemorrhage, hydrocephalus or extra-axial fluid collections.Mild T2 and FLA IR hyperintensities in the periventricular region are most compatible with chronic microvascular isch emic changes. No edema or shift of midline structures. No findings to suspect brain mass. DWI is nega tive for acute CVA. Midline structures are normally formed. Mastoid air cells and paranasal sinuses are clear. IMPRESSION: Negative for acute CVA or other acute intracranial abnormality.
--- NOTE | 2019-05-14 19:54 | ER ---
Nurse's Notes [facility] Name: Veronica Claire Age: 69 yrs Sex: Female : 1950 Arrival Date: 05/14/2019 Time: 17:52 Bed 3 Private MD: Diagnosis: Transient cerebral ischemic attack, unspecified;Weakness Presentation: 05/14 17:57 Presenting complaint: Child states: R FACE NUMBNESS SINCE 1729, INCLUDING ARM, LEG, bp FACE AND TONGUE. Transition of care: patient was not received from another setting of care. Onset of symptoms was May 14, 2019 at 17:30. Risk Assessment: Do you want to hurt yourself or someone else? Patient reports no desire to harm self or others. Initial Sepsis Screen: Does the patient meet any 2 criteria? No. Patient's initial sepsis screen is negative. Does the patient have a suspected source of infection? No. Patient's initial sepsis screen is negative. Care prior to arrival: None. 17:57 Method Of Arrival: Wheelchair bp 17:57 Acuity: LUBA 1 bp Triage Assessment: 17:54 General: PT TO CT. bp 18:13 General: Appears in no apparent distress. comfortable, Behavior is calm, cooperative, bp appropriate for age. Pain: Denies pain. EENT: No deficits noted. Neuro: Level of Consciousness is awake, alert, obeys commands, Oriented to person, place, time, situation, Appropriate for age Director Of Neurology are weak on right Weakness in bilateral leg(s) Speech is normal, Facial symmetry appears normal, Pupils are PERRLA. Cardiovascular: Rhythm is sinus rhythm. Respiratory: No deficits noted. GI: No signs and/or symptoms were reported involving the gastrointestinal system. : No signs and/or symptoms were reported regarding the genitourinary system. Derm: No deficits noted. Musculoskeletal: No deficits noted. Historical: - Allergies: 17:54 HYDROCODONE; hb 17:54 Valium; hb - Home Meds: 18:03 levothyroxine 100 mcg tab 1 tab once daily [Active]; Eliquis 2.5 mg oral tab 1 tab 2 iw times per day [Active]; metoprolol tartrate 25 mg Oral tab 1 tab once daily [Active]; atorvastatin 20 mg oral tab 1 tab once daily [Active]; Plavix 75 mg Oral tab 1 tab once daily [Active]; amlodipine 2.5 mg tab 1 tab once daily [Active]; nitroglycerin 0.4 mg SL subl 1 tab every 5 minutes [Active]; esomeprazole magnesium 20 mg oral cpDR 1 cap once daily [Active]; Vitamin D Oral daily [Active]; Lactobacillus acidophilus oral oral [Active]; - PMHx: 17:54 CARROTID ART CLOGGED; GERD; Hypertension; Hypothyroidism; LOW VITAMIN D LEVEL; hb - PSHx: 17:54 Cholecystectomy; ANKLE SURG; hb - Immunization history:: Adult Immunizations unknown. - Coronavirus screen:: The patient has NOT traveled to [place] in the past 14 days. The patient has NOT had contact with known/suspected case of Coronavirus? Proceed with normal triage procedures. - Social history:: Smoking status: Patient denies any tobacco usage or history of. - Ebola Screening: : No symptoms or risks identified at this time. Screenin:04 Abuse screen: Denies threats or abuse. Denies injuries from another. Nutritional hb screening: No deficits noted. Tuberculosis screening: No symptoms or risk factors identified. Fall Risk Total Bah Fall Scale indicates Low Risk Score (25-44 pts). Fall prevention measures have been instituted. Side Rails Up X 2 Frequent Obs/Assesments occuring Family Present and informed to notify staff if they need to leave bedside As available Patient and Family Educated on Fall Prevention Program and strategies. 18:12 VAN Screening: Arm Drift: Patient shows no arm weakness. Patient is VAN negative. bp Visual Disturbance: No visual disturbance noted. Aphasia: No aphasia noted. Neglect: No neglect noted. 18:15 The patient has not been NPO before screening. The patient is alert, able to follow bp commands. The patient does not exhibit slurred or garbled speech The patient is not exhibiting difficulty speaking. The patient does not exhibit difficulty understanding words. The patient is able to swallow own secretions with no drooling or need for suction. Patient tolerated one teaspoon of water. No drooling, immediate coughing, gurgling, or clearing of the throat was noted. The patient tolerated 90mL of water. No drooling, immediate coughing, gurgling, or clearing of the throat was noted. The patient passed the bedside swallow screening. Oral medications may be given as ordered. Contact Physician for further diet orders. 19:20 The patient has not been NPO before screening. The patient is alert, able to follow rv commands. The patient does not exhibit slurred or garbled speech The patient is not exhibiting difficulty speaking. The patient does not exhibit difficulty understanding words. The patient is able to swallow own secretions with no drooling or need for suction. Patient tolerated one teaspoon of water. No drooling, immediate coughing, gurgling, or clearing of the throat was noted. The patient tolerated 90mL of water. No drooling, immediate coughing, gurgling, or clearing of the throat was noted. Assessment: 17:53 Reassessment: CODE STROKE CALLED, PT TO CT WITH SEBASTIEN RN VIA WHEELCHAIR. hb 17:59 Reassessment: Lynette from inside lab at bedside. hb 18:03 Reassessment: 20g RAC, labs drawn and sent to outside lab with purple stroke sticker. hb 18:04 Reassessment: Dr. Zapata at bedside. hb 18:05 Reassessment: BGL 132. hb 18:16 Reassessment: No changes from previously documented assessment. PT TO MRI. bp 19:20 Reassessment: Patient appears in no apparent distress at this time. patient came back rv from MRI via wheelchair. denies any pain at the moment and verbalized the symptoms are improving, the numbness and the weakness. patient updated on the plan of care. awaiting results of diagnostics at this time. swallow evaluation done at bedside, pt passed the test. 20:34 Reassessment: Patient appears in no apparent distress at this time. Patient and/or rv family updated on plan of care and expected duration. Pain level reassessed. Patient is alert, oriented x 3, equal unlabored respirations, skin warm/dry/pink. Dr Witt talked to the patient and family and explained the results of diagnostics and the plan of care. patient agreed for the admission. Patient denies pain at this time. Patient states symptoms have improved. Vital Signs: 18:02 BP 175 / 66; Pulse 77; Resp 22; Temp 97.9; Pulse Ox 99% ; Pain 0/10; hb 18:17 BP 146 / 76; Pulse 70; Resp 17; Pulse Ox 100% ; bp 19:00 BP 159 / 68; Pulse 66; Resp 20; Pulse Ox 100% on R/A; rv 19:30 BP 147 / 69; Pulse 67; Resp 22; Pulse Ox 100% on R/A; rv 20:00 BP 175 / 76; Pulse 68; Resp 21; Pulse Ox 100% on R/A; rv 20:30 BP 141 / 57; Pulse 66; Resp 16; Pulse Ox 97% on R/A; rv 21:15 BP 120 / 58; Pulse 67; Resp 16; Pulse Ox 96% on R/A; rv NIH Stroke Scale Scores: 18:02 NIHSS Score: 1 kdr 18:12 NIHSS Score: 2 bp ED Course: 17:52 Patient arrived in ED. as 17:53 Rober Humphreys, RN is Primary Nurse. bp 17:57 Adriel Zapata MD is Attending Physician. kdr 17:58 Triage completed. bp 18:03 Inserted saline lock: 20 gauge in right antecubital area, using aseptic technique. hb ,using aseptic technique. by Rober MANUEL Blood collected. 18:04 Arm band placed on. hb 18:07 Patient has correct armband on for positive identification. Placed in gown. Bed in low hb position. Call light in reach. Side rails up X 1. 18:13 EKG done, by ED staff, reviewed by Adriel Zapata MD. em1 18:32 Patient moved to MRI via wheelchair. em2 19:03 Attending Physician role handed off by Adriel Zapata MD rn 19:03 Aristeo Witt MD is Attending Physician. rn 19:14 Primary Nurse role handed off by Rober Humphreys, MAR hb 19:14 Soumya Lloyd, RN is Primary Nurse. hb 19:53 Simona Perla MD is Hospitalizing Provider. rn 21:30 No provider procedures requiring assistance completed. Patient admitted, IV remains in rv place. Administered Medications: No medications were administered Point of Care Testing: Blood Glucose: 18:05 Blood Glucose: 132 mg/dL; hb Ranges: Outcome: 19:54 Decision to Hospitalize by Provider. rn 21:30 Admitted to Med/surg accompanied by tech, via wheelchair, room 211, with chart, Report rv called to DENISE MANUEL 21:30 Condition: good 21:30 Discharge instructions given to patient, family, Instructed on the need for admit, Demonstrated understanding of instructions. 21:31 Patient left the ED. rv NIH Stroke Scale - NIH Stroke Score Date: 05/14/2019 Time: 18:02 Total Score = 1 1a. Level of Consciousness (LOC) - 0(Alert) 1b. Level of Consciousness (LOC) (Year \T\ Age) - 0(Both) 1c. LOC Commands (Open \T\ Closes Eyes/Glass Production Machine Operator) - 0(Both) 2. Best Gaze (Lateral Gaze Paresis) - 0(Normal) 3. Visual Field Loss - 0(No visual loss) 4. Facial Palsy - 0(Normal) 5a. Left Arm: Motor (10-second hold) - 0(No drift) 5b. Right Arm: Motor (10-second hold) - 0(No drift) 6a. Left Leg: Motor (5-second hold - always test supine) - 0(No drift) 6b. Right Leg: Motor (5-second hold - always test supine) - 1(Drift) 7. Limb Ataxia (finger/nose \T\ heel/chun - test with eyes open) - 0(Absent) 8. Sensory Loss (pinprick arms/legs/face) - 0(Normal) 9. Best Language: Aphasia (description/naming/reading) - 0(No aphasia) 10. Dysarthria (speech clarity - read or repeat words) - 0(Normal) 11. Extinction and Inattention (visual/tactile/auditory/spatial/personal) - 0(No abnormality) Initials: [facility] NIH Stroke Scale - NIH Stroke Score Date: 05/14/2019 Time: 18:12 Total Score = 2 1a. Level of Consciousness (LOC) - 0(Alert) 1b. Level of Consciousness (LOC) (Year \T\ Age) - 0(Both) 1c. LOC Commands (Open \T\ Closes Eyes/Glass Production Machine Operator) - 0(Both) 2. Best Gaze (Lateral Gaze Paresis) - 0(Normal) 3. Visual Field Loss - 0(No visual loss) 4. Facial Palsy - 0(Normal) 5a. Left Arm: Motor (10-second hold) - 0(No drift) 5b. Right Arm: Motor (10-second hold) - 0(No drift) 6a. Left Leg: Motor (5-second hold - always test supine) - 1(Drift) 6b. Right Leg: Motor (5-second hold - always test supine) - 1(Drift) 7. Limb Ataxia (finger/nose \T\ heel/chun - test with eyes open) - 0(Absent) 8. Sensory Loss (pinprick arms/legs/face) - 0(Normal) 9. Best Language: Aphasia (description/naming/reading) - 0(No aphasia) 10. Dysarthria (speech clarity - read or repeat words) - 0(Normal) 11. Extinction and Inattention (visual/tactile/auditory/spatial/personal) - 0(No abnormality) Initials: bp Signatures: Adriel Zapata MD MD kdr Martinez, Amelia as Williams, Irene, RN RN iw Aristeo Witt MD MD rn Martinez, Eric em1 SykesDavid em2 Soumya Lloyd RN RN Rober Humphreys RN RN Ash Obrien RN RN rv Corrections: (The following items were deleted from the chart) 19:20 19:14 Reassessment: Patient appears in no apparent distress at this time. rv patient came back from MRI via wheelchair. denies any pain at the moment and verbalized the symptoms are improving, the numbness and the weakness. patient updated on the plan of care. awaiting results of diagnostics at this time. swallow evaluation done at bedside, pt passed the test. 19:21 19:16 The patient has not been NPO before screening. The patient is alert, able rv to follow commands. The patient does not exhibit slurred or garbled speech The patient is not exhibiting difficulty speaking. The patient does not exhibit difficulty understanding words. The patient is able to swallow own secretions with no drooling or need for suction. Patient tolerated one teaspoon of water. No drooling, immediate coughing, gurgling, or clearing of the throat was noted. The patient tolerated 90mL of water. No drooling, immediate coughing, gurgling, or clearing of the throat was noted. The patient passed the bedside swallow screening. Oral medications may be given as ordered. Contact Physician for further diet orders. hb
--- NOTE | 2019-05-14 19:55 | EDPHYS ---
[facility] Name: Veronica Claire Age: 69 yrs Sex: Female : 1950 Arrival Date: 05/14/2019 Time: 17:52 Bed 3 Private MD: ED Physician Aristeo Witt HPI: 05/14 18:02 This 69 yrs old Female presents to ER via Wheelchair with complaints of kdr Numbness. 18:02 The patient's problem is reported as paresthesias, Right tongue. Onset: The kdr symptoms/episode began/occurred suddenly, at 17:00. Duration: This was a single incident, Initially had weakness in right arm and leg (leg > arm). She also had numbness of the right side of her tongue and pain behind her right ear.. Context: the episode(s) was witnessed, by a bystander, symptoms became apparent on May 14, 2019, at 17:00. The patient was initially stating that the LKW was 17:30 but she later told me that it was 17:00. The symptoms are alleviated by nothing. The symptoms are aggravated by nothing. Associated signs and symptoms: The patient has no apparent associated signs or symptoms. Severity of symptoms: At their worst the symptoms were mild in the emergency department the symptoms are unchanged. Patient's baseline: Neuro: alert and fully oriented, Motor: no deficits, Ambulation: walks without assistance, Speech: normal. The patient has not experienced similar symptoms in the past. The patient has not recently seen a physician. Historical: - Allergies: 17:54 HYDROCODONE; hb 17:54 Valium; hb - Home Meds: 18:03 levothyroxine 100 mcg tab 1 tab once daily [Active]; Eliquis 2.5 mg oral tab 1 tab 2 iw times per day [Active]; metoprolol tartrate 25 mg Oral tab 1 tab once daily [Active]; atorvastatin 20 mg oral tab 1 tab once daily [Active]; Plavix 75 mg Oral tab 1 tab once daily [Active]; amlodipine 2.5 mg tab 1 tab once daily [Active]; nitroglycerin 0.4 mg SL subl 1 tab every 5 minutes [Active]; esomeprazole magnesium 20 mg oral cpDR 1 cap once daily [Active]; Vitamin D Oral daily [Active]; Lactobacillus acidophilus oral oral [Active]; - PMHx: 17:54 CARROTID ART CLOGGED; GERD; Hypertension; Hypothyroidism; LOW VITAMIN D LEVEL; hb - PSHx: 17:54 Cholecystectomy; ANKLE SURG; hb - Immunization history:: Adult Immunizations unknown. - Coronavirus screen:: The patient has NOT traveled to [place] in the past 14 days. The patient has NOT had contact with known/suspected case of Coronavirus? Proceed with normal triage procedures. - Social history:: Smoking status: Patient denies any tobacco usage or history of. - Ebola Screening: : No symptoms or risks identified at this time. ROS: 18:02 Constitutional: Negative for fever, chills, and weight loss, Eyes: Negative for injury, kdr pain, redness, and discharge, ENT: Negative for injury, pain, and discharge, Neck: Negative for injury, pain, and swelling, Cardiovascular: Negative for chest pain, palpitations, and edema, Respiratory: Negative for shortness of breath, cough, wheezing, and pleuritic chest pain, Abdomen/GI: Negative for abdominal pain, nausea, vomiting, diarrhea, and constipation, Back: Negative for injury and pain, : Negative for injury, bleeding, discharge, and swelling, MS/Extremity: Negative for injury and deformity, Skin: Negative for injury, rash, and discoloration, Psych: Negative for depression, anxiety, suicide ideation, homicidal ideation, and hallucinations, Allergy/Immunology: Negative for hives, rash, and allergies, Endocrine: Negative for neck swelling, polydipsia, polyuria, polyphagia, and marked weight changes, Hematologic/Lymphatic: Negative for swollen nodes, abnormal bleeding, and unusual bruising. 18:02 Neuro: Positive for numbness, weakness. Exam: 18:02 Radiologist reports: negative head - Luis kdr 18:02 Constitutional: This is a well developed, well nourished patient who is awake, alert, and in no acute distress. Head/Face: Normocephalic, atraumatic. Eyes: Pupils equal round and reactive to light, extra-ocular motions intact. Lids and lashes normal. Conjunctiva and sclera are non-icteric and not injected. Cornea within normal limits. Periorbital areas with no swelling, redness, or edema. ENT: Nares patent. No nasal discharge, no septal abnormalities noted. Tympanic membranes are normal and external auditory canals are clear. Oropharynx with no redness, swelling, or masses, exudates, or evidence of obstruction, uvula midline. Mucous membranes moist. Neck: Trachea midline, no thyromegaly or masses palpated, and no cervical lymphadenopathy. Supple, full range of motion without nuchal rigidity, or vertebral point tenderness. No Meningismus. Chest/axilla: Normal chest wall appearance and motion. Nontender with no deformity. No lesions are appreciated. Cardiovascular: Regular rate and rhythm with a normal S1 and S2. No gallops, murmurs, or rubs. Normal PMI, no JVD. No pulse deficits. Respiratory: Lungs have equal breath sounds bilaterally, clear to auscultation and percussion. No rales, rhonchi or wheezes noted. No increased work of breathing, no retractions or nasal flaring. Abdomen/GI: Soft, non-tender, with normal bowel sounds. No distension or tympany. No guarding or rebound. No evidence of tenderness throughout. Back: No spinal tenderness. No costovertebral tenderness. Full range of motion. Skin: Warm, dry with normal turgor. Normal color with no rashes, no lesions, and no evidence of cellulitis. MS/ Extremity: Pulses equal, no cyanosis. Neurovascular intact. Full, normal range of motion. Neuro: Awake and alert, GCS 15, oriented to person, place, time, and situation. Cranial nerves II-XII grossly intact. Motor strength 5/5 in all extremities. Sensory grossly intact. Cerebellar exam normal. Normal gait. Psych: Awake, alert, with orientation to person, place and time. Behavior, mood, and affect are within normal limits. Vital Signs: 18:02 BP 175 / 66; Pulse 77; Resp 22; Temp 97.9; Pulse Ox 99% ; Pain 0/10; hb 18:17 BP 146 / 76; Pulse 70; Resp 17; Pulse Ox 100% ; bp 19:00 BP 159 / 68; Pulse 66; Resp 20; Pulse Ox 100% on R/A; rv 19:30 BP 147 / 69; Pulse 67; Resp 22; Pulse Ox 100% on R/A; rv 20:00 BP 175 / 76; Pulse 68; Resp 21; Pulse Ox 100% on R/A; rv 20:30 BP 141 / 57; Pulse 66; Resp 16; Pulse Ox 97% on R/A; rv 21:15 BP 120 / 58; Pulse 67; Resp 16; Pulse Ox 96% on R/A; rv NIH Stroke Scale Scores: 18:02 NIHSS Score: 1 kdr 18:12 NIHSS Score: 2 bp MDM: 18:02 Data reviewed: vital signs, nurses notes, lab test result(s), EKG, radiologic studies. kdr Counseling: I had a detailed discussion with the patient and/or guardian regarding: the historical points, exam findings, and any diagnostic results supporting the discharge/admit diagnosis, lab results, radiology results. 19:33 Patient medically screened. rn 19:33 ED course: Pt improved, back to baseline, NIH 0 now. . rn 19:52 Response to treatment: the patient's condition has returned to base line, the patient rn is now symptom free, and as a result, I will admit patient. Admission orders: after a detailed discussion of the patient's condition and case, the admit orders are written by me. ED course: Admitted to Sindy Perla for TIA and neuro consult. Back to baseline, NIH 0, no TPA indicated. . 20:18 ED course: Pt took her eliquis and plavix today, next dose will be in AM.. rn 02/ 17:56 Order name: Basic Metabolic Panel hb 02 17:56 Order name: CBC with Diff hb 05/14 17:56 Order name: Protime (+inr) hb 05/14 17:56 Order name: Ptt, Activated hb 05/14 18:18 Order name: Glucose, Ancillary Testing; Complete Time: 19:03 EDMS 05/14 18:20 Order name: CBC with Automated Diff; Complete Time: 19:03 EDMS 02 17:56 Order name: CT Stroke Brain w/o Contrast hb 02 17:56 Order name: Stroke CXR 1 View hb 02 18:21 Order name: CT; Complete Time: 19:03 EDMS 0212 18:21 Order name: Protime (+INR); Complete Time: 19:03 EDMS 0212 18:21 Order name: PTT, Activated Partial Thromb; Complete Time: 19:03 EDMS 0212 18:24 Order name: RAD; Complete Time: 19:03 EDMS 05/14 18:26 Order name: Basic Metabolic Panel; Complete Time: 19:03 EDMS 02/12 19:17 Order name: MRI; Complete Time: 19:50 EDMS 05/14 17:56 Order name: EKG; Complete Time: 17:57 hb 05/14 17:56 Order name: Accucheck; Complete Time: 18:18 hb 05/14 17:56 Order name: Cardiac monitoring; Complete Time: 18:18 hb 05/14 17:56 Order name: EKG - Nurse/Tech; Complete Time: 18:13 hb 05/14 17:56 Order name: IV Saline Lock; Complete Time: 18:18 hb 05/14 17:56 Order name: Labs collected and sent; Complete Time: 18:18 hb 05/14 17:56 Order name: NPO; Complete Time: 18:18 hb 05/14 17:56 Order name: O2 Per Protocol; Complete Time: 18:18 hb 05/14 17:56 Order name: O2 Sat Monitoring; Complete Time: 18:18 hb 05/14 17:56 Order name: Stroke Swallow Screen; Complete Time: 18:18 hb 05/14 19:17 Order name: MRI; Complete Time: 19:50 EDMS Administered Medications: No medications were administered Point of Care Testing: Blood Glucose: 18:05 Blood Glucose: 132 mg/dL; hb Ranges: Critical Glucose Levels:Adult <50 mg/dl or >400 mg/dl <40 mg/dl or >180 mg/dl Disposition: 05/14/19 19:54 Hospitalization ordered by Simona Perla for Inpatient Admission. Preliminary diagnosis are Transient cerebral ischemic attack, unspecified, Weakness. - Bed requested for Telemetry/MedSurg (Inpatient). - Status is Inpatient Admission. rv - Condition is Stable. - Problem is new. - Symptoms are resolved. NIH Stroke Scale - NIH Stroke Score Date: 05/14/2019 Time: 18:02 Total Score = 1 1a. Level of Consciousness (LOC) - 0(Alert) 1b. Level of Consciousness (LOC) (Year \T\ Age) - 0(Both) 1c. LOC Commands (Open \T\ Closes Eyes/Rfid Specialist) - 0(Both) 2. Best Gaze (Lateral Gaze Paresis) - 0(Normal) 3. Visual Field Loss - 0(No visual loss) 4. Facial Palsy - 0(Normal) 5a. Left Arm: Motor (10-second hold) - 0(No drift) 5b. Right Arm: Motor (10-second hold) - 0(No drift) 6a. Left Leg: Motor (5-second hold - always test supine) - 0(No drift) 6b. Right Leg: Motor (5-second hold - always test supine) - 1(Drift) 7. Limb Ataxia (finger/nose \T\ heel/chun - test with eyes open) - 0(Absent) 8. Sensory Loss (pinprick arms/legs/face) - 0(Normal) 9. Best Language: Aphasia (description/naming/reading) - 0(No aphasia) 10. Dysarthria (speech clarity - read or repeat words) - 0(Normal) 11. Extinction and Inattention (visual/tactile/auditory/spatial/personal) - 0(No abnormality) Initials: [facility] NIH Stroke Scale - NIH Stroke Score Date: 05/14/2019 Time: 18:12 Total Score = 2 1a. Level of Consciousness (LOC) - 0(Alert) 1b. Level of Consciousness (LOC) (Year \T\ Age) - 0(Both) 1c. LOC Commands (Open \T\ Closes Eyes/Rfid Specialist) - 0(Both) 2. Best Gaze (Lateral Gaze Paresis) - 0(Normal) 3. Visual Field Loss - 0(No visual loss) 4. Facial Palsy - 0(Normal) 5a. Left Arm: Motor (10-second hold) - 0(No drift) 5b. Right Arm: Motor (10-second hold) - 0(No drift) 6a. Left Leg: Motor (5-second hold - always test supine) - 1(Drift) 6b. Right Leg: Motor (5-second hold - always test supine) - 1(Drift) 7. Limb Ataxia (finger/nose \T\ heel/chun - test with eyes open) - 0(Absent) 8. Sensory Loss (pinprick arms/legs/face) - 0(Normal) 9. Best Language: Aphasia (description/naming/reading) - 0(No aphasia) 10. Dysarthria (speech clarity - read or repeat words) - 0(Normal) 11. Extinction and Inattention (visual/tactile/auditory/spatial/personal) - 0(No abnormality) Initials: bp Signatures: Dispatcher [employer] [facility] Bronwyn William RN RN dw Rittger, Kevin, MD MD kdr Williams, Irene, RN RN iw Nieto, Roman, MD MD rn Lloyd, Soumya, RN RN Rober Humphreys, RN RN bp Ash Obrien, RN RN rv Corrections: (The following items were deleted from the chart) 21:19 19:54 Hospitalization Ordered by Simona Perla MD for Inpatient Admission. dw Preliminary diagnosis is Transient cerebral ischemic attack, unspecified; Weakness. Bed requested for Telemetry/MedSurg (Inpatient). Status is Inpatient Admission. Condition is Stable. Problem is new. Symptoms are resolved. rn 21:31 21:19 05/14/2019 19:54 Hospitalization Ordered by Simona Perla MD for rv Inpatient Admission. Preliminary diagnosis is Transient cerebral ischemic attack, unspecified; Weakness. Bed requested for Telemetry/MedSurg (Inpatient). Status is Inpatient Admission. Condition is Stable. Problem is new. Symptoms are resolved. dw
[2019-05-14] MEDS ORDERED: MORPHINE 2 MG/ML SYR IV PRN (21:06)
[2019-05-14] MEDS ORDERED: ACETAMINOPHEN 500 MG TAB PO PRN (21:06)
[2019-05-14] MEDS ORDERED: ONDANSETRON 4 MG/2 ML VIAL IV PRN (21:06)
[2019-05-14 21:56] VITALS: O2SAT 97; BMI 26.2
[2019-05-14] MEDS: NA CHLORIDE 0.9% 1,000 ML IV SCH (23:01)
[2019-05-15 05:13] LABS: Absolute Lymphocytes (CBC) 2.2 K/uL (0.7-4.9); Basophils % 0.7 % (0-1.3); Hematocrit 35.4 % (36.0-45.0); Lymphocytes % 30.5 % (15.3-44.8); MPV 7.3 fL (7.6-11.3); RBC Red Blood Cell Count 3.94 M/uL (3.86-4.86)
[2019-05-15 05:44] LABS: ALT/SGPT 38 U/L (12-78); AST/SGOT 30 U/L (15-37); Albumin 3.3 g/dL (3.4-5.0); Alkaline Phosphatase 137 U/L (45-117); BUN Blood Urea Nitrogen 14 mg/dL (7-18); Bicarbonate 26 mmol/L (21-32); Bilirubin Total 0.3 mg/dL (0.2-1.0); Glucose Level 97 mg/dL (74-106); HDL Cholesterol 42 mg/dL (40-60); LDL Cholesterol, Calculated 81 (<130); Protein, Total 6.7 g/dL (6.4-8.2); Sodium Level 143 mmol/L (136-145); Troponin I < 0.02 ng/mL (0.0-0.045)
--- NOTE | 2019-05-15 06:37 | P.HP ---
Certification for Inpatient Patient admitted to: Observation With expected LOS: <2 Midnights Patient will require the following post-hospital care: None Practitioner: I am a practitioner with admitting privileges, knowledge of patient current condition, hospital course, and medical plan of care. Services: Services provided to patient in accordance with Admission requirements found in Title 42 Section 412.3 of the Code of Federal Regulations Patient History Date of Service: 05/14/19 Reason for admission: Right sided paresthesias History of Present Illness: Patient is a 69yo who was admitted to the hospital with right sided paresthesia and weakness. These symptoms started around 5:00 p.m.. They had completely disappeared by the time she had Been seen in the emergency room. She was feeling much better. At this time it appears she may have had a TIA. She will need further workup including MRI of the brain which is pending. Will also get carotid Doppler and echocardiogram. Neurology consultation will also be obtained. Continue on antiplatelet therapy and statin therapy. Allergies diazepam [From Valium] Allergy (Intermediate, Verified 08/28/17 08:49) Shortness of breath Hydrocodone-Acetaminophen Adverse Reaction (Intermediate, Uncoded 08/28/17 08:49 ) Shortness of breath Home Medications: Amlodipine [Norvasc*] 2.5 mg PO DAILY 08/05/17 Clopidogrel Bisulfate [Plavix] 75 mg PO DAILY 08/05/17 Esomeprazole Mag Trihydrate [Nexium] 40 mg PO DAILY 08/05/17 Levothyroxine Sodium 112 mcg PO DAILY 08/05/17 - Past Medical/Surgical History Has patient received pneumonia vaccine in the past: No Diabetic: No -: hypertension -: gerd -: hypothyroidism -: carotid artery right blockage -: cholecystectomy -: ankle sx ligament repair -: neuroma left foot -: cataract sx 05/05/19-rt - Family History Father Medical History: Diabetes, Cancer Notes: pancreatic ca Mother Medical History: Stroke - Social History Smoking Status: Former smoker Alcohol use: Yes CD- Drugs: No Caffeine use: Yes Place of Residence: Home Physical Examination - Vital Signs Temperature: 97.2 F Blood Pressure: 116/51 Pulse: 62 Respirations: 17 Pulse Ox (%): 96 - Physical Exam General: Alert, In no apparent distress, Oriented x3 HEENT: Atraumatic, PERRLA, Mucous membr. moist/pink, EOMI, Sclerae nonicteric Neck: Supple, 2+ carotid pulse no bruit, No LAD, Without JVD or thyroid abnormality Respiratory: Clear to auscultation bilaterally, Normal air movement Cardiovascular: Regular rate/rhythm, Normal S1 S2 Gastrointestinal: Normal bowel sounds, No tenderness Musculoskeletal: No tenderness Integumentary: No rashes Neurological: Normal gait, Normal speech, Normal strength at 5/5 x4 extr, Normal tone, Normal affect Lymphatics: No axilla or inguinal lymphadenopathy - Studies Laboratory Data (last 24 hrs) 05/14/19 18:00: PT 11.3, INR 0.96, APTT 31.0 05/14/19 18:00: WBC 8.6, Hgb 13.7, Hct 41.2, Plt Count 375 05/14/19 18:00: Sodium 142, Potassium 4.0, BUN 12, Creatinine 0.90, Glucose 119 H Assessment & Plan - Problems (Diagnosis) (1) TIA (transient ischemic attack) Current Visit: Yes Status: Acute (2) Paresthesias with subjective weakness Current Visit: Yes Status: Acute (3) CAD (coronary artery disease) Onset Date: 08/06/17 Current Visit: No Status: Chronic Qualifiers: Coronary Disease-Associated Artery/Lesion type: tribal artery [place] vs. transplanted heart: tribal heart Associated angina: without angina Qualified Code(s): I25.10 - Atherosclerotic heart disease of tribal coronary artery without angina pectoris (4) Hyperlipidemia Onset Date: 08/06/17 Current Visit: No Status: Chronic Qualifiers: Hyperlipidemia type: mixed hyperlipidemia Qualified Code(s): E78.2 - Mixed hyperlipidemia (5) Hypertension, essential Onset Date: 08/06/17 Current Visit: No Status: Chronic (6) Hypothyroidism Onset Date: 08/06/17 Current Visit: No Status: Chronic Qualifiers: Hypothyroidism type: acquired Qualified Code(s): E03.9 - Hypothyroidism, unspecified - Plan 1. MRI of the brain pending 2. Echocardiogram and carotid Doppler 3. Anti-platelet therapy and statin therapy 4. Neurology consultation 5. Physical therapy/occupational therapy/speech therapy evaluation 6. Labs for weakness and paresthesias 7. DVT prophylaxis - Advance Directives Does patient have a Living Will: No Does patient have a Durable POA for Healthcare: No
[2019-05-15] MEDS ORDERED: LEVOTHYROXINE SOD 0.125 MG TAB PO SCH (07:00)
--- NOTE | 2019-05-15 07:47 | EKG ---
Test Date: 2019-05-14 Test Time: 18:04:27 Occupational Hygienist: CARISA MEASUREMENT RESULTS: Intervals: Rate: 75 [place]: 158 QRSD: 88 QT: 390 QTc: 435 [place]: P: 29 [place]: 158 QRS: 64 T: 34 INTERPRETIVE STATEMENTS: Normal sinus rhythm Normal ECG Compared to ECG 08/05/2017 13:45:05 Incomplete right bundle-branch block no longer present Electronically Signed On 05-15-19 07:47:16 THERAPEUTIC CASE MANAGER by Dany Gray
[2019-05-15] MEDS ORDERED: PNEUMOCOCCAL VACCINE 0.5 ML IMVAC ONE (08:00)
[2019-05-15] MEDS ORDERED: LEVOTHYROXINE SOD 0.112 MG TAB PO SCH (08:00)
[2019-05-15] MEDS ORDERED: ASPIRIN EC 81 MG TAB PO SCH (09:00)
[2019-05-15] MEDS ORDERED: CLOPIDOGREL 75 MG TABLET PO SCH (09:00)
[2019-05-15] MEDS ORDERED: AMLODIPINE 2.5 MG TAB PO SCH (09:00)
--- NOTE | 2019-05-15 09:56 | ECHO ---
HEIGHT: 5 ft 2 in WEIGHT: 143 lb 0 oz DATE OF STUDY: 05/15/[address]: Simona Perla MD 2-DIMENSIONAL: YES M.MODE: YES DOPPLER: YES COLOR FLOW: YES TDS: NO PORTABLE: NO DEFINITY: NO BUBBLE STUDY: NO DIAGNOSIS: PARESTHESIAS CARDIAC HISTORY: CATHERIZATION: SURGERY: PROSTHETIC VALVE: PACEMAKER: MEASUREMENTS (cm) DIASTOLIC (NORMALS) SYSTOLIC (NORMALS) IVSd 0.8 (0.6-1.2) LA Diam 3.6 (1.9-4.0) LVEF 68% LVIDd 4.7 (3.5-5.7) LVIDs 2.9 (2.0-3.5) %FS 38% LVPWd 0.9 (0.6-1.2) Ao Diam 2.2 (2.0-3.7) 2 DIMENSIONAL ASSESSMENT: RIGHT ATRIUM: NORMAL LEFT ATRIUM: NORMAL RIGHT VENTRICLE: NORMAL LEFT VENTRICLE: NORMAL TRICUSPID VALVE: NORMAL MITRAL VALVE: NORMAL PULMONIC VALVE: NORMAL AORTIC VALVE: NORMAL PERICARDIAL EFFUSION: NONE AORTIC ROOT: NORMAL LEFT VENTRICULAR WALL MOTION: NORMAL DOPPLER/COLOR FLOW: NORMAL COMMENTS: NORMAL 2D ECHOCARDIOGRAM WITH DOPPLER. TECHNOLOGIST: Aric QUINTEROS
--- NOTE | 2019-05-15 10:04 | RAD REPORT ---
EXAM DESCRIPTION: - CP - 05/15/2019 9:25 am CLINICAL HISTORY: Paresthesias TIA, headache COMPARISON: CAROTID ARTERY BILATERAL dated 11/06/2011 TECHNIQUE: Real-time sonographic evaluation of both carotid systems was performed. Doppler interroga tion was performed with waveform tracing bilaterally. FINDINGS: Normal high resistance waveforms are noted in both external carotid arteries. The common c arotid arteries and internal carotid arteries show normal low resistance waveforms. Heavy atheromatous plaquing is seen in the right carotid bulb. Elevated peak systolic velocity of the right carotid bulb region is noted measuring 223 cm/second. Stenosis is estimated at 70% based on NA SCET criteria. Mild hard plaque is seen left carotid bulb without significant velocity elevation. Antegrade flow seen in both vertebral arteries. IMPRESSION: Heavy hard plaquing is seen in the right carotid bulb. Stenosis is estimated at 70-80% at the level of the right carotid bulb based on NASCET criteria.
[2019-05-15] MEDS: NA CHLORIDE 0.9% 1,000 ML IV SCH (11:20)
--- NOTE | 2019-05-15 11:53 | P.DS ---
Admission Date: 05/14/19 Discharge Date: 05/16/19 Disposition: ROUTINE DISCHARGE Discharge Condition: GOOD Reason for Admission: Right sided paresthesias Consultations: Neurologist-Dr. Hernandez - Problems (1) Carotid stenosis Status: Acute (2) HTN (hypertension) Status: Acute (3) TIA (transient ischemic attack) Status: Acute Hospital Course: This patient is a 69-year-old female who presented for right-sided numbness and weakness. She has a history of coronary artery disease, carotid stenosis, hypertension, and hypothyroidism. 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 These symptoms lasted about 2 hr and gradually went away. She was admitted for TIA. Her head CT and brain MRI are unremarkable. ECHO demonstrated normal ejection fraction. Carotid ultrasound demonstrated by b/l stenoses of 70-80%. Patient said that she has been following her inspector final assembly conveyor line at [facility] for carotid stenosis. Her inspector final assembly conveyor line knew that she is having significant carotid stenoses. She is doing well. No numbness or weakness. Vitals stable. She can be discharged to home. Vital Signs/Physical Exam: Temp Pulse Resp BP Pulse Ox 97.2 F 62 17 116/51 L 96 05/15/19 09:26 05/15/19 09:26 05/15/19 09:26 05/15/19 09:26 05/15/19 09:26 General: Alert, In no apparent distress, Oriented x3, Cooperative HEENT: Atraumatic, Normocephalic, PERRLA, Mucous membr. moist/pink Neck: Supple, JVD not distended Respiratory: Clear to auscultation bilaterally, Normal air movement Cardiovascular: No edema, Normal pulses, Regular rate/rhythm, Normal S1 S2, No murmurs Gastrointestinal: Normal bowel sounds, Soft and benign, Non-distended Musculoskeletal: No clubbing, No swelling Integumentary: No rashes, No breakdown, No significant lesion Neurological: Normal gait, Normal speech, Normal strength at 5/5 x4 extr, Normal tone, Sensation intact, Cranial nerves 3-12 intact, Normal reflexes 2+, Normal affect Laboratory Data at Discharge: WBC 7.3 K/uL (4.3-10.9) D 05/15/19 04:57 Hgb 12.1 g/dL (12.0-15.0) 05/15/19 04:57 Hct 35.4 % (36.0-45.0) L 05/15/19 04:57 Plt Count 322 K/uL (152-406) 05/15/19 04:57 PT 11.3 SECONDS (9.5-12.5) 05/14/19 18:00 INR 0.96 05/14/19 18:00 APTT 31.0 SECONDS (24.3-36.9) 05/14/19 18:00 Sodium 143 mmol/L (136-145) 05/15/19 04:57 Potassium 4.0 mmol/L (3.5-5.1) 05/15/19 04:57 BUN 14 mg/dL (7-18) 05/15/19 04:57 Creatinine 0.58 mg/dL (0.55-1.3) 05/15/19 04:57 Glucose 97 mg/dL (74-106) 05/15/19 04:57 Total Bilirubin 0.3 mg/dL (0.2-1.0) 05/15/19 04:57 AST 30 U/L (15-37) 05/15/19 04:57 ALT 38 U/L (12-78) 05/15/19 04:57 Alkaline Phosphatase 137 U/L (45-117) H 05/15/19 04:57 Troponin I < 0.02 ng/mL (0.0-0.045) 05/15/19 04:57 Triglycerides 97 mg/dL (<150) 05/15/19 04:57 Cholesterol 142 mg/dL (<200) 05/15/19 04:57 HDL Cholesterol 42 mg/dL (40-60) 05/15/19 04:57 Cholesterol/HDL Ratio 3.38 05/15/19 04:57 Home Medications: Amlodipine [Norvasc*] 2.5 mg PO DAILY 08/05/17 Clopidogrel Bisulfate [Plavix] 75 mg PO DAILY 08/05/17 Esomeprazole Mag Trihydrate [Nexium] 40 mg PO DAILY 08/05/17 Levothyroxine Sodium 112 mcg PO DAILY 08/05/17 Aspirin 81 mg PO DAILY 30 Days tab.chew 05/15/19 Atorvastatin Calcium [Lipitor*] 20 mg PO BEDTIME 30 Days tab 05/15/19 New Medications: Aspirin 81 mg PO DAILY 30 Days tab.chew Atorvastatin Calcium [Lipitor*] 20 mg PO BEDTIME 30 Days tab Patient Discharge Instructions: 1. Please follow inspector final assembly conveyor line for carotid stenosis. 2. Please follow neurologist in 1 or 2 weeks. 3. [facility] if having any concerns Diet: AHA Activity: Ad ron Followup: Edouard Hernandez MD [ASSOCIATE-ACTIVE - CAN ADMIT] - Dany Gray MD [ACTIVE - CAN ADMIT] -
[2019-05-15 12:00] LABS: Folic Acid, (Folate) > 20.0 ng/mL (3.1-17.5); Thyroid Stimulating Hormone 0.076 uIU/mL (0.360-3.740)
[2019-05-15] MEDS ORDERED: ENOXAPARIN 40 MG/0.4 ML SQ SCH (17:00)
[2019-05-15 19:56] VITALS: BP 116/51; TEMP 97.2
[2019-05-15] MEDS ORDERED: ATORVASTATIN 20 MG TAB PO SCH (21:00)
[2019-05-16] MEDS ORDERED: PANTOPRAZOLE 40MG TABLET PO SCH (06:30)
== END 2019-05-15 14:50 | disposition home or self-care (01) ==
LOC: ER 17:51 → ERHOLD 21:26 → 2ND 21:27
PROVIDERS: ADMIT Hospitalist; ATTEND Hospitalist
DX: G45.9 Transient cerebral ischemic attack, unspecified (principal); I65.23 Occlusion and stenosis of bilateral carotid arteries; I10 Essential (primary) hypertension; I25.10 Atherosclerotic heart disease of native coronary artery without angina pectoris; E03.9 Hypothyroidism, unspecified; E78.2 Mixed hyperlipidemia
CPT/HCPCS: 93005; 93306; 85025 ×2; 80048; 36415; 85610; 80061; 82947; 85730; 84443; 84484 ×2; 84439; 82746; 82607; 80053; 70450; 71045; 93880; 70551; 72141; 99291; 99292; J7030; G0378 ×3

== ENCOUNTER 2020-05-28 06:23 | Day surgery (SDC) | payer OTHER, MEDICARE ==
[2020-05-26 10:05] LABS: Absolute Lymphocytes (CBC) 1.6 K/uL (0.7-4.9); Basophils % 0.6 % (0-1.3); Hematocrit 36.2 % (36.0-45.0); Lymphocytes % 22.6 % (15.3-44.8); MPV 7.7 fL (7.6-11.3); RBC Red Blood Cell Count 4.02 M/uL (3.86-4.86)
[2020-05-26 10:27] LABS: BUN Blood Urea Nitrogen 10 mg/dL (7-18); Bicarbonate 29 mmol/L (21-32); Glucose Level 113 mg/dL (74-106); Potassium 3.7 mmol/L (3.5-5.1); Sodium Level 143 mmol/L (136-145)
[2020-05-26 10:35] LABS: Protime INR 1.01
--- NOTE | 2020-05-26 10:45 | RAD REPORT ---
EXAM DESCRIPTION: Oswaldo Torres (2 Views)05/26/2020 9:58 am CLINICAL HISTORY: Preop/hypertension COMPARISON: 2019 FINDINGS: The lungs appear clear of acute infiltrate. The heart is normal size IMPRESSION: No acute abnormalities displayed
--- NOTE | 2020-05-27 05:39 | EKG ---
Test Date: 2020-05-26 Test Time: 09:21:50 Tool Liaison: KWAME MEASUREMENT RESULTS: Intervals: Rate: 64 [place]: 160 QRSD: 88 QT: 420 QTc: 433 [place]: P: 21 [place]: 160 QRS: 70 T: 39 INTERPRETIVE STATEMENTS: Sinus rhythm with occasional premature ventricular complexes RSR' or QR pattern in V1 suggests right ventricular conduction delay Borderline ECG Compared to ECG 05/14/2019 18:04:27 Ventricular premature complex(es) now present RSR' in V1 or V2 now present Electronically Signed On 05-27-20 05:35:48 PLATE DEVELOPER by Nagi Wang
[2020-05-28] MEDS ORDERED: Ringers Lactate 1,000 ML IV ONE (07:01)
[2020-05-28] MEDS ORDERED: CEFAZOLIN/SWI 1gm 1 GM/10 ML SYR ONE (07:01)
[2020-05-28] MEDS ORDERED: ONDANSETRON 4 MG/2 ML VIAL ONE (07:08)
[2020-05-28] MEDS ORDERED: FENTANYL CITR 100 MCG/2 ML ONE (07:08)
[2020-05-28] MEDS ORDERED: propofoL 200 MG/20 ML VIAL IV ONE ×2 (07:08→08:30)
[2020-05-28] MEDS ORDERED: KETOROLAC 30 MG/ML INJ ONE (07:09)
[2020-05-28] MEDS ORDERED: NS 0.9% VIAL 40 ML ONE (07:09)
[2020-05-28] MEDS ORDERED: LIDOCAINE 2% MPF 5 ML VIAL ONE (07:09)
[2020-05-28] MEDS ORDERED: BUPIVACAINE 0.25% PF 30 ML VIAL ONE (07:18)
--- NOTE | 2020-05-28 08:44 | P.BOP ---
Preoperative diagnosis: left carpal tunnel syndrome, left index, ring, small finger trigger digits Postoperative diagnosis: same Primary procedure: left open carpal tunnel release Secondary procedure: left index, ring, small finger A1 alejandro release Electrical Engineering Professor: NONE,NONE Estimated blood loss: 3 cc Specimen: none Findings: see dictation Anesthesia: General Complications: None Implants: none Fluids & blood products: per anesthesia record: TT: 45 mins @ 300 mmHg Transferred to: Recovery Room Condition: Good
[2020-05-28] MEDS ORDERED: HYDROCODONE/APAP 5/325 MG TAB ONE (10:51)
[2020-05-28 11:00] VITALS: BP 141/64; TEMP 97.1; O2SAT 94
--- NOTE | 2020-05-31 11:28 | OP ---
Date of Procedure: 05/28/2020 Surgeon: Jonny Stahl MD Preoperative Diagnoses: 1.Left carpal tunnel syndrome. 2.Left index, ring and small finger trigger digits. Postoperative Diagnoses: 1.Left carpal tunnel syndrome. 2.Left index, ring and small finger trigger digits. Procedures Performed: 1.Left open carpal tunnel release .. 2.Left index finger A1 alejandro release. 3.Left ring finger A1 alejandro release. 4.Left small finger A1 alejandro release. Anesthesia: [place] block. Complications: None. Implants: None. Fluids: Per Anesthesia record. Tourniquet Time: 45 minutes at 300 mmHg. Indication For Procedure: Ms. Claire is a 70-year-old female, who presented to my clinic with sig ns, symptoms, and EMG findings consistent with left carpal tunnel syndrome as well as left index, rin g and small finger trigger digits. The patient failed conservative treatment measures and continued to have pain and difficulty with activities of daily living. After discussing with the patient at [facility] risks and benefits associated with operative and nonoperative treatment, she expressed understan ding and elected to proceed with operative treatment. Description Of Procedure: After informed consent was obtained, the patient was identified in the pre operative holding area and the left upper extremity was marked. The patient was then brought back to the operating room, transferred to the operating table in supine fashion, placed under a Rohit block anesthesia. The left upper extremity was then prepped and draped in usual sterile fashion. A time-o ut was initiated. The correct patient and procedure were confirmed and identified. The patient did receive preoperative prophylactic antibiotics. Attention was first taken to the carpal tunnel releas e. Approximately, a 3 cm longitudinal incision was made just ulnar to the thenar crease. Dissection was then taken down and the palmar fascia was released, which was identified. A Bricelyn elevator was then placed just deep to the palmar fascia and transverse carpal ligament to protect the median nerve at all times. A 15 blade was then used to release the palmar fascia as well as the transverse carpa l ligament under direct visualization and a Bricelyn elevator protecting the median nerve at all times. After this was completed, a blunt tipped Metzenbaum scissor was then brought in to remove any fascia l bands with the tips aimed superficially to remove any remaining fascial bands. The wound was then irrigated thoroughly with normal saline. Next, attention was then taken to the index finger, A1 pull ey release. Approximately 1 cm incision was made, just centered over the A1 alejandro. Dissection was then taken down to the A1 alejandro and flexor tendon sheath was then released using a 15 blade. The fl exor tendons were then brought out through the incision and there was full excursion of the tendons w ithout any triggering noted. Next, attention was taken to the ring finger. A 1 cm incision was made over the A1 alejandro. Dissection was then taken down to the A1 alejandro. A 15 blade was then used to r elease the A1 alejandro and flexor tendon sheath. Flexor tendons were then brought out of the incision and there was full excursion without any triggering noted. Next, attention was then taken to the sma ll finger where a 1 cm longitudinal incision was made centered over the A1 alejandro. Dissection was th en taken down to the A1 alejandro, which was released with a 15 blade. The flexor tendons were then bro ught out through the incision. There was full excursion without any triggering noted. All wounds we re then irrigated thoroughly with normal saline and skin was approximated using a 5-0 Prolene. Steri le dressings were applied. Tourniquet was let down. The patient was awakened and transferred to the PACU in stable condition. Postoperative Plan: She will be nonweightbearing of her left upper extremity. She will follow up in clinic in 1 week for suture removal. ANGEL/SIA Voice ID: [id number] Report ID: [id number]
== END 2020-05-28 11:00 | disposition home or self-care (01) ==
LOC: OR 06:23
PROVIDERS: ATTEND Orthopaedic Surgery Sports Medicine
PROC: 0LN80ZZ Release Left Hand Tendon, Open Approach (ICD-10-PCS; 2020-05-28)
PROC: 01N50ZZ Release Median Nerve, Open Approach (ICD-10-PCS; 2020-05-28)
PROC: 0LN80ZZ Release Left Hand Tendon, Open Approach (ICD-10-PCS; principal; 2020-05-28 07:30)
PROC: 0LN80ZZ Release Left Hand Tendon, Open Approach (ICD-10-PCS; 2020-05-28 07:30)
DX: G56.02 Carpal tunnel syndrome, left upper limb (principal); M65.322 Trigger finger, left index finger; M65.342 Trigger finger, left ring finger; M65.352 Trigger finger, left little finger; U07.1 COVID-19
CPT/HCPCS: 93005; 85025; 80048; 36415; 85610; 85730; 71046; 26055 ×3; 64721; U0002; J2704; J3010; J0690; J7120; J2405

== ENCOUNTER 2020-12-01 07:20 | Day surgery (SDC) | payer OTHER, MEDICARE ==
--- NOTE | 2020-11-26 10:28 | RAD REPORT ---
EXAM DESCRIPTION: RAD - Chest Pa And Lat (2 Views) - 11/26/2020 10:14 am CLINICAL HISTORY: PRE OP COMPARISON: Chest Pa And Lat (2 Views) dated 05/26/2020; Chest Single View dated 05/14/2019; Chest Pa And Lat (2 Views) dated 08/28/2017; Chest Pa And Lat (2 Views) dated 08/05/2017 FINDINGS: No evidence of edema or pneumonia. The heart size is within normal limits.No acute osseous abnormality. No significant pleural effusions or pneumothorax. Atherosclerosis. IMPRESSION: No acute cardiopulmonary disease.
[2020-12-01 07:45] LABS: Protime INR 0.92
[2020-12-01] MEDS ORDERED: CEFAZOLIN/SWI 1gm 1 GM/10 ML SYR ONE (08:10)
[2020-12-01] MEDS ORDERED: Ringers Lactate 1,000 ML IV ONE (08:10)
[2020-12-01] MEDS ORDERED: propofoL 200 MG/20 ML VIAL IV ONE (08:24)
[2020-12-01] MEDS ORDERED: MIDAZOLAM HCL 2 MG/2 ML INJ ONE (08:24)
[2020-12-01] MEDS ORDERED: LIDOCAINE 2% MPF 5 ML VIAL ONE (08:24)
[2020-12-01] MEDS ORDERED: KETOROLAC 30 MG/ML INJ ONE (08:24)
[2020-12-01] MEDS ORDERED: FENTANYL CITR 100 MCG/2 ML ONE (08:24)
[2020-12-01] MEDS ORDERED: ONDANSETRON 4 MG/2 ML VIAL ONE (08:37)
[2020-12-01] MEDS ORDERED: BUPIVACAINE 0.25% PF 10 ML VIAL ONE (09:00)
--- NOTE | 2020-12-01 10:35 | P.BOP ---
Preoperative diagnosis: left trigger thumb Postoperative diagnosis: same Primary procedure: left trigger thumb release Diet Attendant: NONE,NONE Estimated blood loss: 3 cc Specimen: none Findings: see dictation Anesthesia: General Complications: None Implants: none Fluids & blood products: per anesthesia record: TT: 26 mins @ 250 mmHg Transferred to: Recovery Room Condition: Good
[2020-12-01 11:22] VITALS: BP 121/52; O2SAT 98
[2020-12-01] MEDS ORDERED: TRAMADOL HCL 50 MG TAB ONE (12:06)
[2020-12-01 12:16] VITALS: TEMP 97.2
--- NOTE | 2020-12-02 09:04 | OP ---
Date of Procedure: 12/01/2020 Surgeon: Jonny Stahl MD Preoperative Diagnosis: Left thumb, trigger thumb. Postoperative Diagnosis: Left thumb, trigger thumb. Procedure Performed: Left thumb A1 alejandro release. Anesthesia: General, LMA. Fluids: Per Anesthesia record. Estimated Blood Loss: 3 cc Complications: None. Indication For Procedure: Veronica is a 70-year-old female who presented to my clinic with signs and s ymptoms consistent with left trigger thumb. The patient failed conservative treatment measures, incl uding corticosteroid injection and had continued pain affecting her activities of daily living. I di scussed with the patient at length risks and benefits associated with operative and nonoperative mehreen tment. She expressed understanding and elected to proceed with operative treatment. Description Of Procedure: After informed consent was obtained, the patient was identified in the pre operative holding area. The left thumb was marked. The patient was then brought back to the operati ng room, transferred to the operative table in supine fashion, placed under general LMA anesthesia. The left upper extremity was then prepped and draped in usual sterile fashion. A time-out was initia chio. The correct patient and procedure were confirmed and identified. The patient did receive her p reoperative prophylactic antibiotics. The left upper extremity was exsanguinated using Esmarch and t he tourniquet was inflated to 250 mmHg. Approximately, a 1 cm horizontal incision was made over the thumb flexion crease centered over the A1 alejandro. Dissection was then taken down to the flexor tendo n sheath with the radial digital nerve gently retracted radially. The flexor tendon sheath was then identified and was split and divided using a 15 blade. A significant amount of tenosynovial fluid th en was expressed. The A1 alejandro was completely released using the 15 blade as well as tenotomy. The tendon was brought through the incision and there was full excursion of the tendon without triggerin g noted. The wound was then irrigated thoroughly with normal saline. The skin was approximated usin g a 5-0 Prolene. Sterile dressings were applied. The patient was awakened, tourniquet was let down, and transferred to the PACU in stable condition. Postoperative Plan: She may begin working on range of motion exercises and follow up in 1 week for w ound check. CV/MODL Voice ID: [id number] Report ID: [id number]
== END 2020-12-01 12:05 | disposition home or self-care (01) ==
LOC: PRE 07:20
PROVIDERS: ATTEND Orthopaedic Surgery Sports Medicine
PROC: 0LN80ZZ Release Left Hand Tendon, Open Approach (ICD-10-PCS; principal; 2020-12-01 08:45)
DX: M65.312 Trigger thumb, left thumb (principal); Z20.822 Contact with and (suspected) exposure to COVID-19
CPT/HCPCS: 93005; 36415; 85610; 85730; 71046; 26055; U0002; J2704; J3010; J0690; J7120; J2405; J2250

== ENCOUNTER 2021-11-08 19:22 | Emergency (ER) | payer OTHER, MEDICARE ==
--- OUTSIDE RECORDS SUMMARY | 2021-11-08 19:25 | XMS REPORT | Continuity of Care Document ---
:1950 Author Organization [facility] t Address [address] [place] [address] Care Team Providers Name Role Phone ROXANAMICHELE CHRISTIANSON Attending Clinician Unavailable RAMSEY GONSALES Attending Clinician Unavailable YAKOV CRUZ Attending Clinician Unavailable YIN MEJIA Attending Clinician Unavailable ALEXANDRE CLARK Attending Clinician Unavailable DAVY KEATING Attending Clinician Unavailable BEVERLY DOSHI Attending Clinician Unavailable ALEXANDRE CLARK Admitting Clinician Unavailable Problems Condition Condition Condition Status Onset Resolution Last Treating Co mments Source Name Details Category Date Date Treatment Clinician Date Carpal Carpal Problem Active 2020-01-23 Jose andria tunnel tunnel 01:12:58 l syndrome syndrome Pranay n (disorder) (disorder) Active Problem 01/23/2020 [facility] Allergies, Adverse Reactions, Alerts This patient has no known allergies or adverse reactions. Medications This patient has no known medications. Procedures This patient has no known procedures. Encounters Start End Encounter Admission Attending Care Care Encounter Source Date/Time Date/Time Type Type Clinicians Facility Department ID 2021-06-06 Outpatient [facility] [id number] Common 09:04:01 [facility] 2021-04-27 [facility] [id number] Common 13:30:39 [id number] [facility] 2021-04-27 Outpatient [facility] [id number] Common 12:33:17 [id number] [facility] 2021-04-27 Outpatient [facility] [id number] Common 12:22:30 [id number] [facility] 2021-04-27 Outpatient [facility] [id number] Common 12:22:09 [id number] [facility] 2021-04-27 Outpatient [facility] [id number] Common 11:48:50 [id number] [facility] 2021-08-09 2021-08-09 ambulatory [facility] [id number] Common 00:00:00 00:00:00 [facility] 2021-06-16 2021-06-16 ambulatory [facility] [id number] Common 00:00:00 00:00:00 [facility] 2021-06-06 2021-06-06 ambulatory [facility] [id number] Common 00:00:00 00:00:00 [facility] 2021-06-06 2021-06-06 ambulatory [facility] [id number] Common 00:00:00 00:00:00 [facility] 2021-06-02 2021-06-02 Emergency IRUKE, [facility] [id number] 55 [place] 00:00:00 00:00:00 MICHELE [address] 2020-12-10 2020-12-10 Outpatient ILDA, [facility] [id number] [place] 00:00:00 00:00:00 AHMED [address] 2020-12-09 2020-12-09 Outpatient [facility] [id number] Common 00:00:00 00:00:00 [facility] 2020-11-29 2020-11-29 Outpatient [facility] [id number] Common 00:00:00 00:00:00 [facility] 2020-11-29 2020-11-29 Outpatient [facility] [id number] Common 00:00:00 00:00:00 [facility] 2020-11-17 2020-11-17 Outpatient [facility] [id number] Common 00:00:00 00:00:00 [facility] 2020-11-05 2020-11-05 Outpatient [facility] [id number] Common 00:00:00 00:00:00 [facility] 2020-11-02 2020-11-02 Outpatient [facility] [id number] Common 00:00:00 00:00:00 [facility] 2020-08-31 2020-08-31 Outpatient [facility] [id number] Common 00:00:00 00:00:00 [facility] 2020-07-20 2020-07-20 Outpatient [facility] [id number] Common 00:00:00 00:00:00 [facility] 2020-06-21 2020-06-21 Outpatient [facility] [id number] Common 00:00:00 00:00:00 [facility] 2020-06-03 2020-06-03 Outpatient [facility] [id number] Common 00:00:00 00:00:00 [facility] 2020-06-01 2020-06-01 Outpatient [facility] [id number] Common 00:00:00 00:00:00 [facility] 2020-05-27 2020-05-27 Outpatient [facility] [id number] Common 00:00:00 00:00:00 [facility] 2020-05-26 2020-05-26 Outpatient [facility] [id number] Common 00:00:00 00:00:00 [facility] 2020-05-24 2020-05-24 Outpatient [facility] [id number] Common 00:00:00 00:00:00 [facility] 2020-04-20 2020-04-20 Outpatient [facility] [id number] Common 00:00:00 00:00:00 [facility] 2020-04-20 2020-04-20 Outpatient [facility] [id number] Common 00:00:00 00:00:00 [facility] 2020-03-10 2020-03-10 Outpatient [facility] [id number] Common 00:00:00 00:00:00 [facility] 2020-03-08 2020-03-08 Outpatient [facility] [id number] Common 00:00:00 00:00:00 [facility] 2020-02-29 2020-02-29 Outpatient [facility] [id number] Common 00:00:00 00:00:00 [facility] 2020-02-16 2020-02-16 Outpatient [facility] [id number] Common 00:00:00 00:00:00 [facility] 2020-02-09 2020-02-09 Outpatient [facility] [id number] Common 00:00:00 00:00:00 [facility] 2020-02-04 2020-02-04 Outpatient CUBB, [facility] [id number] 025 [place] 00:00:00 00:00:00 YAKOV [address] 2020-02-02 2020-02-02 Outpatient [facility] [id number] Common 00:00:00 00:00:00 [facility] 2020-01-20 2020-01-21 Outpatient nullFlavo MNA [id number] [facility] 13:15:00 04:59:59 r Neurology 00 l [place] [facility] 2020-01-21 2020-01-21 Outpatient [facility] [id number] Common 00:00:00 00:00:00 [facility] 2019-12-31 2019-12-31 Outpatient [facility] [id number] Common 00:00:00 00:00:00 [facility] 2019-12-29 2019-12-29 Outpatient [facility] [id number] Common 00:00:00 00:00:00 [facility] 2019-09-18 2019-09-18 Outpatient CUB, [facility] [id number] 251 [place] 00:00:00 00:00:00 YAKOV [address] 2019-08-29 2019-08-29 Outpatient ILDA, [facility] [id number] [place] 00:00:00 00:00:00 AHMED [address] 2019-08-01 2019-08-01 Outpatient ILDA, [facility] [id number] [place] 00:00:00 00:00:00 AHMED [address] 2019-07-25 2019-07-25 Emergency BOYAREDDIGA [facility] [id number] [place] 00:00:00 00:00:00 RI, [address] 2019-07-21 2019-07-21 Outpatient ILDA, [facility] [id number] [place] 00:00:00 00:00:00 AHMED [address] 2019-07-09 2019-07-09 Outpatient CUBB, [facility] [id number] 097 [place] 00:00:00 00:00:00 YAKOV [address] 2019-05-26 2019-05-28 Outpatient CLARK, [facility] [id number] 513 [place] 00:00:00 00:00:00 ALEXANDRE [address] 2019-05-26 2019-05-28 Outpatient RISHABH, [facility] [id number] 367 [place] 00:00:00 00:00:00 DAVY [address] 2019-05-26 2019-05-26 Outpatient GLENDA, [facility] [id number] [place] 00:00:00 00:00:00 BEVERLY [address] 2019-05-26 2019-05-26 Outpatient GLENDA, [facility] [id number] [place] 00:00:00 00:00:00 BEVERLY [address] 2019-05-26 2019-05-26 Outpatient RISHABH, [facility] [id number] 368 [place] 00:00:00 00:00:00 DAVY [address] Results This patient has no known results.
[2021-11-08] MEDS ORDERED: IBUPROFEN 200 MG TAB PO ONE ×2 (19:49→20:32)
[2021-11-08 20:31] LABS: Urine Blood 1+ (Negative); Urine Glucose Negative (Negative); Urine Protein Negative (Negative); Urine Specific Gravity 1.015 (1.005-1.030); Urine pH 7.5 (5.0-7.0)
[2021-11-08 21:07] LABS: Urine Bacteria <20 /HPF (<20)
--- NOTE | 2021-11-08 21:10 | ER ---
Nurse's Notes [facility] Name: Veronica Claire Age: 71 yrs Sex: Female : 1950 Arrival Date: 11/08/2021 Time: 19:24 Bed 10 Private MD: Diagnosis: Coronavirus infection, unspecified Presentation: 11/08 19:32 Chief complaint: Patient states: C/o chills all day, and cough since yesterday, "I took ll3 a covid test at home and it was negative", c/o burning upon urination. Coronavirus screen: Vaccine status: Patient reports receiving the 2nd dose of the covid vaccine. chills, cough unrelated to allergies, fever. Ebola Screen: No symptoms or risks identified at this time. Risk Assessment: Temp <36.0*C (96.8*F)) or > 38.3*C (100.9*F). No. Patient's initial sepsis screen is negative. Do you want to hurt yourself or someone else? Patient reports no desire to harm self or others. Onset of symptoms was November 08, 2021. Care prior to arrival: Medication(s) given: Tylenol, at 3 pm. 19:32 Method Of Arrival: Ambulatory ll3 19:32 Acuity: LUBA 3 ll3 21:33 Initial Sepsis Screen: Does the patient meet any 2 criteria? No. Patient's initial ll3 sepsis screen is negative. Does the patient have a suspected source of infection? No. Patient's initial sepsis screen is negative. Triage Assessment: 19:38 General: Appears uncomfortable, Behavior is calm, cooperative. Pain: Denies pain. ll3 Neuro: Level of Consciousness is awake, alert, obeys commands, Oriented to person, place, time, situation. Respiratory: Respiratory effort is even, unlabored, Respiratory pattern is regular, symmetrical. : Reports burning with urination. Derm: Skin is pink, warm \\T\\ dry. Historical: - Allergies: 19:38 HYDROCODONE; ll3 19:38 Valium; ll3 - PMHx: 19:38 CARROTID ART CLOGGED; GERD; Hypertension; Hypothyroidism; LOW VITAMIN D LEVEL; ll3 - Immunization history:: Client reports receiving the 2nd dose of the Covid vaccine. - Social history:: Smoking status: Patient denies any tobacco usage or history of. Screenin:32 Abuse screen: Denies threats or abuse. Nutritional screening: No deficits noted. ll3 Tuberculosis screening: No symptoms or risk factors identified. Fall Risk None identified. Vital Signs: 19:32 BP 156 / 57; Pulse 97; Resp 18; Temp 101.5; Pulse Ox 97% on R/A; Weight 67.59 kg (R); ll3 Height 5 ft. 2 in. (157.48 cm) (R); Pain 0/10; 19:32 Body Mass Index 27.25 (67.59 kg, 157.48 cm) ll3 ED Course: 19:24 Patient arrived in ED. bp1 19:26 Susana Simpson FNP-C [facility]. kb 19:26 Aristeo Witt MD is Attending Physician. kb 19:38 Triage completed. ll3 19:38 Arm band placed on. ll3 20:40 Notified Nurse Practitioner and/or Physician Manager Medical Affairs of a critical lab result(s), bb Covid positive Susana Simpson ORTHODONTIST VICE PRESIDENT notified. 21:32 Patient has correct armband on for positive identification. Bed in low position. Call ll3 light in reach. Side rails up X 1. Adult w/ patient. 21:32 No provider procedures requiring assistance completed. Patient did not have IV access ll3 during this emergency room visit. Administered Medications: 20:27 Drug: Ibuprofen 600 mg Route: PO; bb 21:34 Follow up: Response: No adverse reaction ll3 Medication: 21:34 VIS not applicable for this client. ll3 Outcome: 21:09 Discharge ordered by . kb 21:32 Discharged to home ambulatory, with family. ll3 21:32 Condition: stable 21:32 Discharge instructions given to patient, family, Instructed on discharge instructions, follow up and referral plans. Demonstrated understanding of instructions, follow-up care. 21:34 Patient left the ED. ll3 Signatures: Susana Simpson FNP-C FNP-Ckb Ballard, Brenda, RN RN Cady Leal Lynsea, RN RN ll3 Corrections: (The following items were deleted from the chart) 19:42 19:32 BP 156 / 57; Pulse 102bpm; Resp 18bpm; Pulse Ox 97% RA; Temp 101.5F; 67.59 kg ll3 Reported; Height 5 ft. 2 in. Reported; BMI: 27.2; Pain 0/10; ll3
--- NOTE | 2021-11-08 21:10 | EDPHYS ---
Physician Documentation [facility] Name: Veronica Claire Age: 71 yrs Sex: Female : 1950 Arrival Date: 11/08/2021 Time: 19:24 Bed 10 Private MD: ED Physician Aristeo Witt HPI: 11/08 21:27 This 71 yrs old Female presents to ER via Ambulatory with complaints of kb Congestion, Cough. 21:27 The patient or guardian reports cough, that is intermittent, described as mild, flu kb symptoms, low-grade fever, myalgias. Onset: The symptoms/episode began/occurred yesterday. Severity of symptoms: At their worst the symptoms were moderate, in the emergency department the symptoms are unchanged. Modifying factors: The symptoms are alleviated by nothing, the symptoms are aggravated by nothing. Associated signs and symptoms: Pertinent positives: fever, Pertinent negatives: chest pain, diarrhea, ear ache, nausea, rhinorrhea, sore throat, vomiting. The patient has not experienced similar symptoms in the past. The patient has not recently seen a physician. Historical: - Allergies: 19:38 HYDROCODONE; ll3 19:38 Valium; ll3 - PMHx: 19:38 CARROTID ART CLOGGED; GERD; Hypertension; Hypothyroidism; LOW VITAMIN D LEVEL; ll3 - Immunization history:: Client reports receiving the 2nd dose of the Covid vaccine. - Social history:: Smoking status: Patient denies any tobacco usage or history of. ROS: 21:26 Cardiovascular: Negative for chest pain, palpitations, and edema. kb 21:26 Constitutional: Positive for body aches, chills, fatigue, fever, malaise. 21:26 Respiratory: Positive for cough, Negative for dyspnea on exertion, hemoptysis, orthopnea, pleurisy, shortness of breath, sputum production, wheezing. 21:26 : Positive for urinary frequency, small amounts, burning with urination. 21:26 All other systems are negative. Exam: 21:26 Constitutional: This is a well developed, well nourished patient who is awake, alert, kb and in no acute distress. Head/Face: Normocephalic, atraumatic. ENT: Moist Mucous membranes Cardiovascular: Regular rate and rhythm with a normal S1 and S2. No gallops, murmurs, or rubs. No pulse deficits. Respiratory: Respirations even and unlabored. No increased work of breathing. Talking in full sentences Abdomen/GI: Soft, non-tender. No distention Skin: Warm, dry with normal turgor. Normal color. MS/ Extremity: Pulses equal, no cyanosis. Neurovascular intact. Full, normal range of motion. Neuro: Awake and alert, GCS 15, oriented to person, place, time, and situation. Moves all extremities. Normal gait. Psych: Awake, alert, with orientation to person, place and time. Behavior, mood, and affect are within normal limits. Vital Signs: 19:32 BP 156 / 57; Pulse 97; Resp 18; Temp 101.5; Pulse Ox 97% on R/A; Weight 67.59 kg (R); ll3 Height 5 ft. 2 in. (157.48 cm) (R); Pain 0/10; 19:32 Body Mass Index 27.25 (67.59 kg, 157.48 cm) ll3 MDM: 19:26 Patient medically screened. kb 21:26 ED course: paxlovid not prescribed because pt is on atorvastatin. . kb 21:26 Data reviewed: vital signs, nurses notes. Data interpreted: Pulse oximetry: on room air kb is 97 %. Interpretation: normal. Counseling: I had a detailed discussion with the patient and/or guardian regarding: the historical points, exam findings, and any diagnostic results supporting the discharge/admit diagnosis, lab results, the need for outpatient follow up, a family practitioner, to return to the emergency department if symptoms worsen or persist or if there are any questions or concerns that arise at home. 11/08 19:36 Order name: Flu; Complete Time: 20:17 kb 11/08 19:36 Order name: Urine Microscopic Only; Complete Time: 21:08 kb 11/08 19:36 Order name: Urine Dipstick-Ancillary (obtain specimen); Complete Time: 20:27 kb 11/08 19:36 Order name: COVID-19 SARS RT PCR (Document "Date of Onset" if Symptomatic); Complete kb Time: 20:44 11/08 20:31 Order name: Urine Dipstick-Ancillary; Complete Time: 20:36 EDMS Administered Medications: 20:27 Drug: Ibuprofen 600 mg Route: PO; bb 21:34 Follow up: Response: No adverse reaction ll3 Disposition: 21:49 Co-signature as Attending Physician, Aristeo Witt MD. rn Disposition Summary: 11/08/21 21:09 Discharge Ordered Location: Home kb Condition: Stable kb Diagnosis - Coronavirus infection, unspecified kb Followup: kb - With: Emergency Department - When: As needed - Reason: Worsening of condition Followup: kb - With: Private Physician - When: 2 - 3 days - Reason: Recheck today's complaints, Continuance of care, Re-evaluation by your physician Discharge Instructions: - Discharge Summary Sheet kb - Viral Respiratory Infection, [id number] kb - COVID-19 kb Forms: - Medication Reconciliation Form kb - Thank You Letter kb - Antibiotic Education kb - Prescription Opioid Use kb Signatures: Dispatcher [employer] EDMS Susana Simpson, MARKET RESEARCH COORDINATOR-C MARKET RESEARCH COORDINATOR-Julieta Herman, RN Aristeo Anand MD MD rn Loubet, Lynsea, RN RN ll3
[2021-11-08 22:37] VITALS: BP 156/57; TEMP 101.5; O2SAT 97
== END 2021-11-08 21:34 | disposition home or self-care (01) ==
LOC: ER 19:22
DX: U07.1 COVID-19 (principal); I10 Essential (primary) hypertension; Z88.5 Allergy status to narcotic agent
CPT/HCPCS: 87804 ×2; U0003; 81003; 81015; 99283

== ENCOUNTER 2024-11-07 08:17 | Day surgery (SDC) | payer OTHER, MEDICARE ==
[2024-11-07] MEDS ORDERED: NA CHLORIDE 0.9% 1,000 ML ONE (08:44)
[2024-11-07] MEDS ORDERED: ONDANSETRON 4 MG/2 ML VIAL ONE (09:56)
[2024-11-07] MEDS ORDERED: LIDOCAINE 2% MPF 5 ML VIAL ONE (09:56)
[2024-11-07] MEDS ORDERED: FENTANYL CITR 100 MCG/2 ML ONE (09:56)
[2024-11-07] MEDS: CEFAZOLIN SODIUM 1 GM/VIAL ONE (10:12)
[2024-11-07] MEDS: BUPIVACAINE 0.25% PF 10 ML VIAL ONE (10:41)
--- NOTE | 2024-11-07 12:02 | P.BOP ---
Preoperative diagnosis: Right carpal tunnel, thumb, index, middle, ring, small finger trigger digit Postoperative diagnosis: Same Primary procedure: Right open carpal tunnel release Secondary procedure: Right thumb, index, middle, ring, small finger A1 alejandro releases Estimated blood loss: 5 cc Specimen: None Findings: See dictation Anesthesia: General Complications: None Implants: None Fluids & blood products: Per anesthesia record Transferred to: Recovery Room Condition: Good
--- NOTE | 2024-11-07 12:08 | P.OP ---
Preoperative diagnosis: Right carpal tunnel, thumb, index, middle, ring, small finger trigger digit Postoperative diagnosis: same Primary procedure: Right open carpal tunnel release Secondary procedure: Right thumb, index, middle, ring, small finger A1 alejandro releases Anesthesia: general Estimated blood loss: 5 cc Specimen: none Findings: See dictation Operative Technique: Reason for Surgery: Veronica is a 74 year old female that presented with physical exam findings as well as EMG findings consistent with right carpal tunnel syndrome and right thumb, index, middle, ring and small finger trigger digits. I discussed with the patient at length risks and benefits associated with the procedure. She expressed understanding and elected proceed with operative treatment. Description of Procedure: After informed consent was obtained the patient was identified in the preoperative holding area. The right upper extremity was marked patient. Patient then brought back to the operating room transferred the operative table in supine fashion and placed under anesthesia. The right upper extremity was exsanguinated and the tourniquet was inflated to 250 mmHg. Approximately a 3 cm longitudinal incision was made just ulnar to the thenar crease. Dissection was then taken down to the palmar fascia which was identified. A Thornfield elevator was then placed just deep to the palmar fascia to protect the median nerve at all times. A 15 blade was then used to release the palmar fascia and transverse carpal ligament leaving the Thornfield elevator to protect the nerve at all times. Any remaining fascial bands were then released using a blunt tip Metzenbaum scissor. The tips were him superficially to protect the median nerve at all times. The wound was then irrigated thoroughly with normal saline. The skin was approximated using a 5-0 Prolene. Next attention was taken to the trigger digits. Approximately a 2 cm longitudinal incision was made over the index finger A1 alejandro. Dissection was then taken down to the A1 alejandro using Ragnell retractors. The tendon sheath was identified. It was split in line with the incision. There was significant tenosynovial fluid that was expressed after opening the tendon sheath. The tendon was then brought out through the incision using a Ragnell retractor. There was full excursion of the tendon without triggering noted. A 2 cm longitudinal incision was then made over the middle finger A1 alejandro. Dissection was then taken down to the A1 alejandro using Ragnell retractors. The tendon sheath was identified. It was split in line with the incision. The tendon was then brought out through the incision using a Ragnell retractor. There was full excursion of the tendon without triggering noted. Next attention was taken to the ring finger. Approximately a 2 cm longitudinal incision was made over the ring finger A1 alejandro. Dissection was then taken down to the A1 alejandro using Ragnell retractors. The tendon sheath was identified. It was split in line with the incision. There was significant tenosynovial fluid that was expressed after opening the tendon sheath. The tendon was then brought out through the incision using a Ragnell retractor. There was full excursion of the tendon without triggering noted. Approximately a 1 cm longitudinal incision over the small finger A1 alejandro. Dissection was then taken down to the A1 alejandro using Ragnell retractors. The tendon sheath was identified. It was split in line with the incision. The tendon was then brought out through the incision using a Ragnell retractor. There was full excursion of the tendon without triggering noted. Finally, attention was taken to the thumb. Approximately a 2 cm horizontal skin incision was made over the thumb A1 alejandro at the flexion crease. Dissection was then taken down to the A1 alejandro using Ragnell retractors protecting the digital nerve. The tendon sheath was identified. It was split in line with the tendon. The tendon was then brought out through the incision using a Ragnell retractor. There was full excursion of the tendon without triggering noted. The wounds were then irrigated thoroughly with normal saline and skin was approximated using a 5-0 Prolene. Sterile dressings were applied and patient was awakened and transferred to PACU in stable condition. Sterile dressings were applied and patient was awakened and transferred to PACU in stable condition. Postoperative plan: The patient will follow-up in 1 to 2 weeks for wound check and suture removal. She may begin to work on range of motion exercises at this time. Complications: None Implants: none Fluids & blood products: per anesthesia record Transferred to: Recovery Room Condition: Good
[2024-11-07] MEDS: HYDROMORPHONE HCL 1 MG/ML INJ ONE (12:16)
[2024-11-07] MEDS: TRAMADOL HCL 50 MG TAB ONE (13:10)
[2024-11-07 14:51] VITALS: BP 126/55; TEMP 97; O2SAT 97
== END 2024-11-07 13:55 | disposition home or self-care (01) ==
LOC: OR 08:17
PROVIDERS: ATTEND Orthopaedic Surgery Sports Medicine
PROC: 0LN70ZZ Release Right Hand Tendon, Open Approach (ICD-10-PCS; 2024-11-07)
PROC: 01N50ZZ Release Median Nerve, Open Approach (ICD-10-PCS; principal; 2024-11-07 09:45)
DX: G56.01 Carpal tunnel syndrome, right upper limb (principal); M65.321 Trigger finger, right index finger; M65.331 Trigger finger, right middle finger; M65.341 Trigger finger, right ring finger; M65.351 Trigger finger, right little finger; M65.311 Trigger thumb, right thumb
CPT/HCPCS: 82947 ×2; 64721; 26055 ×5; J2704; J2003; J3010; J1171; J2405; J7030; J0690